=== PATIENT | female | born 1950 | race Caucasian/White ===

== ENCOUNTER 2019-01-20 15:24 | Inpatient (IN) ==
[2019-01-20 15:50] LABS: Hematocrit 36.8 % (35.3-44.9); Hemoglobin 12.6 g/dL (11.5-15.4); Mean Corpuscular HGB Conc 34.2 g/dL (31.6-35.5); Mean Corpuscular Hemoglobin 30.4 pg (28.0-33.3); Mean Corpuscular Volume 88.9 fL (83.0-100.0); Mean Platelet Volume 9.5 fL (9.4-12.4); Platelet Count 149 K/mcL (140-400); Red Blood Count 4.14 M/mcL (3.82-4.97); Red Cell Distribution Width 13.2 % (11.5-14.5); Segmented Neutrophils % 67.4 %
[2019-01-20 15:51] LABS: Basophils % 0.2 %; Eosinophils # 0.1 K/mcL (0.0-0.6); Eosinophils % 1.9 %; Lymphocytes # 1.1 K/mcL (0.6-4.6); Monocytes # 0.4 K/mcL (0.0-1.3); Monocytes % 8.5 %; Neutrophils # 3.5 K/mcL (1.6-8.9)
[2019-01-20 16:10] LABS: Acetaminophen < 10 mcg/mL (10-20); BUN/Creatinine Ratio 19 (6-26); Blood Urea Nitrogen 15 mg/dL (8-23); Calcium 8.8 mg/dL (8.6-10.3); Carbon Dioxide 30 mEq/L (23-29); Chloride 105 mEq/L (98-107); Ethanol < 10 mg/dL (Less than 10); Glucose 121 mg/dL (70-105); Osmolality,Calculated 294 (280-300); Salicylate < 2.5 mg/dL (15.0-30.0); Sodium 141 mEq/L (136-145); eGFR For Non-African Americans > 60 (> 60)
[2019-01-20 16:20] LABS: Bilirubin,Urine Negative (Negative); Blood,Urine Negative (Negative); Clarity,Urine Clear (Clear); Color,Urine Yellow (Yellow); Glucose,Urine (UA) Normal (Normal); Ketones,Urine Negative (Negative); Leukocyte Esterase,Urine Moderate (Negative); Nitrite,Urine Negative (Negative); Protein,Urine Negative (Neg-Trace); Urobilinogen,Urine Normal (Normal)
[2019-01-20 16:22] LABS: Bacteria,Urine None Seen per hpf (None-Few); Hyaline Casts,Urine None Seen per lpf (None-Few); RBC,Urine 0-3 per hpf (0-3); Squamous Epithelial Cell,Urine Many per lpf (None-Few)
[2019-01-20 16:43] LABS: Amphetamine Screen,Urine Negative ng/mL (Cutoff=1000); Barbiturate Screen,Urine Negative ng/mL (Cutoff=200); Benzodiazepines Screen,Urine Negative ng/mL (Cutoff=200); Cannabinoid Screen,Urine Negative ng/mL (Cutoff = 50); Cocaine Screen,Urine Negative ng/mL (Cutoff= 300); Opiate Screen,Urine Negative ng/mL (Cutoff=300); Phencyclidine Screen,Urine Negative ng/mL (Cutoff=25)
[2019-01-20] MEDS ORDERED: Ibuprofen 800 MG TABLET PO ONE (19:07)
--- NOTE | 2019-01-20 19:25 | Emergency Department Note ---
Disposition Clinical Impression: Depression Disposition: Admitted As Inpatient Condition: Good Referrals: NONE,PCP [Primary Care Provider] - Time of Disposition: 19:25 Psych HPI - General Chief Complaint: ED Psychiatric Symptoms Stated Complaint: Depression Time Seen by Provider: 01/20/19 16:07 Source: patient, family - History of Present Illness HPI Narrative: Patient is 69-year-old female presents to emergency department with chief complaint of depression and feeling. The patient states she has had multiple medication changes recently feels as though the world is overwhelming. The patient reports in time she has had intermittent thoughts of hurting does not have a defined plan. The patient was sent to the emergency department today for medical clearance and psychiatric evaluation. - Related Data Home Medications Medication Instructions Recorded Confirmed Albuterol Inhaler 08/02/16 Alprazolam 08/02/16 Atenolol 08/02/16 Gabapentin 08/02/16 Hydrocodone-Acetamin 10-325/15 08/02/16 Meloxicam 08/02/16 Montelukast 08/02/16 Omeprazole 08/02/16 08/02/16 Oxcarbazepine 08/02/16 Requip 08/02/16 Risperdal 08/02/16 Sertraline HCl 08/02/16 Wellbutrin 08/02/16 Previous Rx's Medication Instructions Recorded Loratadine [Claritin] 10 mg PO DAILY #30 tablet 08/02/16 Hyoscyamine SL [Levsin SL] 0.125 mg SL TID PRN #7 tab.subl 10/23/17 Ondansetron ODT [Zofran ODT] 4 mg SL Q8HR PRN #7 tab.rapdis 10/23/17 Sulfamethoxazole/Trimeth DS 1 each PO BID #14 tablet 03/24/18 [Bactrim DS] Nitrofurantoin (BID) [Macrobid] 100 mg PO BID 7 Days #14 capsule 04/19/18 Allergies Allergy/AdvReac Type Severity Reaction Status Date / Time acetaminophen Allergy Rash Verified 08/28/18 12:20 [From Darvocet-N] Buspirone Allergy Rash Verified 08/28/18 12:20 codeine Allergy Itching Verified 08/28/18 12:20 guaifenesin [From Mucinex] Allergy Itching Verified 08/28/18 12:20 propoxyphene [From Darvon] Allergy Rash Verified 08/28/18 12:20 All systems ED: reviewed and negative except as stated. Past Medical History - Past Medical History Attestation: Yes The following information was validated with the patient. Medical history: Reports: arthritis, asthma, fibromyalgia, hypertension, other Surgical history: Reports: non-contributory Psychiatric history: Reports: anxiety, depression - Social History Smoking Status: 2nd Hand Smoke Exposure Smokeless Tobacco Status: No Alcohol use: Reports: none Drug use: Reports: none Physical Exam General: Conversant and pleasant interactive and nontoxic. Head: Normocephalic/atraumatic Eyes:PERRLA, EOMI, no conjunctivitis Nares: Without d/c. Ears: No erythema or d/c noted. Oralpharnyx: P&MMM noted, Neck: Supple, no JVD or ROLLWAY WORKER noted. Cardovascular: regular rate and rhythm without murmur, brisk capillary refill, no peripheral edema. Lungs: Clear to ascultation bilaterally, non-labored Abd: Soft nontender, Non Distended, no guarding, no rebound. : Defered Extremities: moves all extremities equally Neuro: AOx3, no obvious gross neuro deficit Psych: Patient is tearful affect and appears depressed Derm: No rash noted - General Limitations: no limitations General appearance: alert Course Vital Signs Temperature 98.5 F 01/20/19 15:28 Pulse Rate 107 01/20/19 15:28 Respiratory Rate 22 01/20/19 15:28 Blood Pressure 166/83 01/20/19 15:28 O2 Sat by Pulse Oximetry 94 01/20/19 15:28 Temperature 98.5 F 01/20/19 15:28 Pulse Rate 107 01/20/19 15:28 Respiratory Rate 22 01/20/19 15:28 Blood Pressure 166/83 01/20/19 15:28 O2 Sat by Pulse Oximetry 94 01/20/19 15:28 Oxygen Delivery Oxygen Delivery Room Air Psych - Lab Data Result diagrams: 01/20/19 15:42 01/20/19 15:42 Lab Results 01/20/19 01/20/19 01/20/19 Range/Units 15:42 15:42 16:12 WBC 5.2 (4.3-11.1) K/mcL RBC 4.14 (3.82-4.97) M/mcL Hgb 12.6 (11.5-15.4) g/dL Hct 36.8 (35.3-44.9) % MCV 88.9 (83.0-100.0) fL MCH 30.4 (28.0-33.3) pg MCHC 34.2 (31.6-35.5) g/dL RDW 13.2 (11.5-14.5) % Plt Count 149 (140-400) K/mcL MPV 9.5 (9.4-12.4) fL Immature Gran % 1.0 (0-4) % Seg Neutrophils % 67.4 % Lymphocytes % 21.0 % Monocytes % 8.5 % Eosinophils % 1.9 % Basophils % 0.2 % Neutrophils # 3.5 (1.6-8.9) K/mcL Lymphocytes # 1.1 (0.6-4.6) K/mcL Monocytes # 0.4 (0.0-1.3) K/mcL Eosinophils # 0.1 (0.0-0.6) K/mcL Basophils # 0.0 (0.0-0.2) K/mcL Sodium 141 (136-145) mEq/L Potassium 4.0 (3.5-5.1) mEq/L Chloride 105 (98-107) mEq/L Carbon Dioxide 30 H (23-29) mEq/L BUN 15 (8-23) mg/dL Creatinine 0.80 (0.60-1.20) mg/dL Est GFR ( Amer) > 60 (> 60) Est GFR (Non-Af Amer) > 60 (> 60) BUN/Creatinine Ratio 19 (6-26) Glucose 121 H (70-105) mg/dL Calculated Osmolality 294 (280-300) Calcium 8.8 (8.6-10.3) mg/dL Urine Color Yellow (Yellow) Urine Clarity Clear (Clear) Urine pH 6.0 (5.0-8.0) pH Units Ur Specific [place] 1.020 (1.010-1.025) Urine Protein Negative (Neg-Trace) mg/dL Urine Glucose (UA) Normal (Normal) mg/dL Urine Ketones Negative (Negative) mg/dL Urine Blood Negative (Negative) Urine Nitrite Negative (Negative) Urine Bilirubin Negative (Negative) Urine Urobilinogen Normal (Normal) mg/dL Ur Leukocyte Esterase Moderate H (Negative) Urine Microscopic RBC 0-3 (0-3) per hpf Urine Microscopic WBC 5-15 H (0-3) per hpf Ur Squamous Epith Cells Many H (None-Few) per lpf Urine Bacteria None Seen (None-Few) per hpf Hyaline Casts None Seen (None-Few) per lpf Salicylates < 2.5 L (15.0-30.0) mg/dL Urine Opiates Screen (Zlssdf=067) ng/mL Acetaminophen < 10 L (10-20) mcg/mL Ur Barbiturates Screen (Nveixj=900) ng/mL Ur Phencyclidine Scrn (Cutoff=25) ng/mL Ur Amphetamines Screen (Urfoxr=1883) ng/mL U Benzodiazepines Scrn (Warboo=195) ng/mL Urine Cocaine Screen (Cutoff= 300) ng/mL U Marijuana (THC) Screen (Cutoff = 50) ng/mL Ur Drug Screen Interp Ethyl Alcohol < 10 (Less than 10) mg/dL 01/20/19 Range/Units 16:15 WBC (4.3-11.1) K/mcL RBC (3.82-4.97) M/mcL Hgb (11.5-15.4) g/dL Hct (35.3-44.9) % MCV (83.0-100.0) fL MCH (28.0-33.3) pg MCHC (31.6-35.5) g/dL RDW (11.5-14.5) % Plt Count (140-400) K/mcL MPV (9.4-12.4) fL Immature Gran % (0-4) % Seg Neutrophils % % Lymphocytes % % Monocytes % % Eosinophils % % Basophils % % Neutrophils # (1.6-8.9) K/mcL Lymphocytes # (0.6-4.6) K/mcL Monocytes # (0.0-1.3) K/mcL Eosinophils # (0.0-0.6) K/mcL Basophils # (0.0-0.2) K/mcL Sodium (136-145) mEq/L Potassium (3.5-5.1) mEq/L Chloride (98-107) mEq/L Carbon Dioxide (23-29) mEq/L BUN (8-23) mg/dL Creatinine (0.60-1.20) mg/dL Est GFR ( Amer) (> 60) Est GFR (Non-Af Amer) (> 60) BUN/Creatinine Ratio (6-26) Glucose (70-105) mg/dL Calculated Osmolality (280-300) Calcium (8.6-10.3) mg/dL Urine Color (Yellow) Urine Clarity (Clear) Urine pH (5.0-8.0) pH Units Ur Specific [place] (1.010-1.025) Urine Protein (Neg-Trace) mg/dL Urine Glucose (UA) (Normal) mg/dL Urine Ketones (Negative) mg/dL Urine Blood (Negative) Urine Nitrite (Negative) Urine Bilirubin (Negative) Urine Urobilinogen (Normal) mg/dL Ur Leukocyte Esterase (Negative) Urine Microscopic RBC (0-3) per hpf Urine Microscopic WBC (0-3) per hpf Ur Squamous Epith Cells (None-Few) per lpf Urine Bacteria (None-Few) per hpf Hyaline Casts (None-Few) per lpf Salicylates (15.0-30.0) mg/dL Urine Opiates Screen Negative (Cwzsdq=105) ng/mL Acetaminophen (10-20) mcg/mL Ur Barbiturates Screen Negative (Cvzhhg=332) ng/mL Ur Phencyclidine Scrn Negative (Cutoff=25) ng/mL Ur Amphetamines Screen Negative (Gfrcnj=7183) ng/mL U Benzodiazepines Scrn Negative (Ywagry=244) ng/mL Urine Cocaine Screen Negative (Cutoff= 300) ng/mL U Marijuana (THC) Screen Negative (Cutoff = 50) ng/mL Ur Drug Screen Interp See Below Ethyl Alcohol (Less than 10) mg/dL Psychiatric Medical Clearance - Medical Clearance Checklist Does the patient have a NEW psychiatric condition?: No Any abnormalities indicating possible medical illness?: No Any history of medical issues?: No Medical History: No Social History Section defined Any abnormal vital signs prior to transfer?: No Current Vitals: Last Vital Signs Temp 98.5 F 01/20/19 15:28 Pulse 107 01/20/19 15:28 Resp 22 01/20/19 15:28 BP 166/83 01/20/19 15:28 Pulse Ox 94 01/20/19 15:28 Is the patient intoxicated or cognitively impaired?: No Psychiatric Lab Panel: Drug Levels and Toxicity 01/20/19 01/20/19 15:42 16:15 Urine Opiates Screen Negative Acetaminophen < 10 L Ur Barbiturates Screen Negative Ur Phencyclidine Scrn Negative Ur Amphetamines Screen Negative U Benzodiazepines Scrn Negative Urine Cocaine Screen Negative U Marijuana (THC) Screen Negative Ethyl Alcohol < 10 Any abnormalities on the physical exam?: No Any abnormal labs?: No Abnormal Labs: Abnormal lab results Carbon Dioxide 30 mEq/L (23-29) H 01/20/19 15:42 Glucose 121 mg/dL (70-105) H 01/20/19 15:42 Ur Leukocyte Esterase Moderate (Negative) H 01/20/19 16:12 5-15 per hpf (0-3) H 01/20/19 16:12 Ur Squamous Epith Cells Many per lpf (None-Few) H 01/20/19 16:12 Salicylates < 2.5 mg/dL (15.0-30.0) L 01/20/19 15:42 Acetaminophen < 10 mcg/mL (10-20) L 01/20/19 15:42 Does the patient require durable medical equiptment?: No Is the patient ambulatory?: Yes Is the patient a fall risk?: No Has the patient been medically cleared?: Yes Any acute medical condition require Tx prior to transfer?: No Statement of Medical Clearance: I have evaluated the patient, reviewed diagnostic information, and certify that the patient's medical condition is sufficiently stable that transfer to the psychiatric unit does not pose a significant risk of deterioration.
[2019-01-20] MEDS ORDERED: Mag Hydrox/Al Hydrox/Simeth 30 ML UDC PO PRN (19:45)
[2019-01-20] MEDS ORDERED: *HR* LORazepam 2 MG/ML VIAL IM PRN (19:45)
[2019-01-20] MEDS ORDERED: Haloperidol Lactate 5 MG/ML VIAL IM PRN (19:45)
[2019-01-20] MEDS ORDERED: *HR* LORazepam 1 MG TABLET PO PRN ×2 (19:45→23:48)
[2019-01-20] MEDS ORDERED: MOM Conc 10 ML UD.LIQ PO PRN (19:45)
[2019-01-20] MEDS ORDERED: rOPINIRole 1 MG TABLET PO SCH (23:45)
[2019-01-21] MEDS: risperiDONE 1 MG TABLET PO SCH ×2 (00:47→21:15)
[2019-01-21] MEDS: Gabapentin 300 MG CAPSULE PO SCH ×4 (00:47→21:15)
[2019-01-21] MEDS: OXcarbazepine 150 MG TABLET PO SCH ×3 (00:47→21:15)
[2019-01-21] MEDS: traZODone 50 MG TABLET PO PRN ×3 (01:22→23:07)
[2019-01-21] MEDS: Levothyroxine 25 MCG TABLET PO SCH (06:32)
[2019-01-21] MEDS: Metoprolol XL (24 HR) Succ 50 MG TAB.ER.24H PO SCH (09:30)
[2019-01-21] MEDS: rOPINIRole 1 MG TABLET PO SCH ×2 (10:44→21:15)
--- NOTE | 2019-01-21 12:08 | Psychiatry History & Physical ---
Date of Encounter: 01/21/19 Time of Encounter: 12:01 History of Present Illness Patient Stated Chief Complaint: suicidal ideation Medicare Admission Attestation: For traditional Medicare patients the provided hospital inpatient services are reasonable and necessary and in the case of services not specified as inpatient-only under 42 CFR 419.22 (n), that they are appropriately provided as inpatient services in accordance 42 CFR 412.3. For Critical Access Hospital the patient may reasonably be expected to be discharged or transferred to a hospital within 96 hours after admission to the Critical Access Hospital. Admitted From: Home Plans for Post Hospital Care: Home History of Present Illness: Ms. Garcia is a 69 year old female who was admitted secondary to depression with SI. Client has a long history of depression extending back many years. She has been diagnosed with Bipolar Disorder and she has been hospitalized twice before with severe depression. Client has been on multiple different meds over the years and she currently takes Wellbutrin, Neurontin, Ativan, Trileptal, Risperdal, and Zoloft. Client also did ECT at [facility] approximately ten years ago and said this treatment worked well for her. Client is overweight but otherwise physically healthy. No AOD issues. 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 Daughter and granddaughter recently moved in with her because daughter's sent to long term, daughter lost her job and cannot afford her car/home anymore. Daughter is supposed to be helping the client around the house but client states she is also very depressed and just lays around. Client has a history of three suicide attempts with the last one being several years ago. States she does not consider herself a suicide risk at this time because she has been "saved." However, she admits to depression that leaves her unable to function/cope with her life stressors at this point. Past Med Surg Social Fam HX - Past Medical History Medical history: arthritis, asthma, fibromyalgia, hypertension, thyroid disease, other - Past Psychiatric History Psychiatric history: Reports: bipolar, depression, prior suicide attempt, previous psychiatric hospitalization Family psychiatric history: Yes Family Psychiatric History Details: daughter Family History of Suicide: Completed Family Suicide History Details: second or third cousin - Past Surgical History Surgical History: non-contributory - Social History Smoking Status: 2nd Hand Smoke Exposure Smokeless Tobacco Status: No Alcohol use: none Drug use: none Medications & Allergies Albuterol Sulfate [Ventolin Hfa] 2 puff IH Q6H PRN 01/20/19 [History] BuPROPion [Wellbutrin] 100 mg PO BID 01/20/19 [History] Budesonide/Formoterol 80/4.5 [Symbicort 80/4.5] 2 puff IH BID 01/20/19 [History] Ergocalciferol (VITAMIN D2) [Vitamin D2] 50,000 unit PO MO 01/20/19 [History] Gabapentin [Neurontin] 300 mg PO BID 01/20/19 [History] Gabapentin [Neurontin] 600 mg PO HS 01/20/19 [History] Ibuprofen 800 mg PO TID PRN 01/20/19 [History] LORazepam [Ativan] 1 mg PO BID PRN 01/20/19 [History] Levothyroxine Sodium 25 mcg PO DAILY 01/20/19 [History] Metoprolol Succinate [Toprol Xl] 50 mg PO DAILY 01/20/19 [History] OXcarbazepine [Oxcarbazepine] 600 mg PO BID 01/20/19 [History] Omeprazole [PriLOSEC] 20 mg PO DAILY 01/20/19 [History] Sertraline [Zoloft] 200 mg PO DAILY 01/20/19 [History] risperiDONE [Risperidone] 1 mg PO HS 01/20/19 [History] Ropinirole HCl [Requip] 2 mg PO BID 01/21/19 [History] Allergy/AdvReac Type Severity Reaction Status Date / Time acetaminophen Allergy Rash Verified 08/28/18 12:20 [From Darvocet-N] Buspirone Allergy Rash Verified 08/28/18 12:20 codeine Allergy Itching Verified 08/28/18 12:20 guaifenesin [From Mucinex] Allergy Itching Verified 08/28/18 12:20 propoxyphene [From Darvon] Allergy Rash Verified 08/28/18 12:20 Review of Systems Constitutional: Denies: fever, chills, weakness, weight change Eyes: Denies: eye pain, vision change Ears, Nose, Throat: Denies: ear pain, throat pain, dental pain, hearing loss, congestion Cardiovascular: Denies: chest pain, palpitations, dyspnea on exertion Respiratory: Denies: cough, dyspnea, wheezes Gastrointestinal: Denies: abdominal pain, nausea, vomiting, diarrhea, constipation Genitourinary female: Denies: urgency, dysuria, frequency, abnormal menses, dyspareunia Musculoskeletal: Denies: joint swelling, joint pain Integumentary: Denies: rash, lesions, pruritus Neurological: Denies: headache, weakness, numbness, memory loss Endocrine: Denies: fatigue, heat or cold intolerance Hematologic/Lymphatic: Denies: easy bruising, lymphadenopathy Allergic/Immunologic: Denies: urticaria, itchy eyes Exam - HEENT Head exam IM: Present: atraumatic Eye exam IM: Present: EOMI, normal appearance, PERRL ENT exam IM: Present: normal exam - Neurological Neurological exam: Present: CN II-XII intact - Respiratory Respiratory exam IM: Present: CTAB - GI/Abdominal GI/Abdominal exam IM: Present: normal bowel sounds, soft. Absent: tenderness - Extremities Extremities exam IM: Present: full ROM - Skin Skin exam IM: Present: dry, warm - Constitutional Vitals: Temp Pulse Resp BP Pulse Ox 97.5 F L 108 18 125/72 95 01/21/19 09:00 01/21/19 09:00 01/21/19 09:00 01/21/19 09:00 01/21/19 09:00 General appearance: obese - Musculoskeletal Gait: normal Station: relaxed Strength & Tone: normal for patient - Psychiatric Patient Orientation: Yes Person, Yes Time, Yes Place Level of alertness: Alert Behavior: calm, cooperative Psychomotor activity: Normal Eye Contact: Maintains Eye Contact Mood Description: Depressed Affect description: tearful Speech Volume: Normal Speech pattern: normal rate, normal rhythm, normal tone, fluent, spontaneous Language & Vocabulary: consistent with education Thought Process: Linear Thought Content: Yes Suicidal ideation, No Homicidal ideation, No Overt delusions Perceptual Disturbances: No Auditory hallucinations, No Visual hallucinations Attention Span Ability: Capable of Focused Attention Memory Description: Grossly Intact Patient Reliability: Reliable Historian Fund of knowledge: Yes abstraction ability, Yes average, Yes aware of current events Intelligence Estimate: Average Judgment: Fair Insight: Partial Results - Drug Levels and Toxicology Drug Levels and Toxicology: Drug Levels and Toxicity 01/20/19 01/20/19 15:42 16:15 Urine Opiates Screen Negative Acetaminophen < 10 L Ur Barbiturates Screen Negative Ur Phencyclidine Scrn Negative Ur Amphetamines Screen Negative U Benzodiazepines Scrn Negative Urine Cocaine Screen Negative U Marijuana (THC) Screen Negative Ethyl Alcohol < 10 - Labs Labs: Laboratory Last Values WBC 5.2 K/mcL (4.3-11.1) 01/20/19 15:42 RBC 4.14 M/mcL (3.82-4.97) 01/20/19 15:42 Hgb 12.6 g/dL (11.5-15.4) 01/20/19 15:42 Hct 36.8 % (35.3-44.9) 01/20/19 15:42 MCV 88.9 fL (83.0-100.0) 01/20/19 15:42 MCH 30.4 pg (28.0-33.3) 01/20/19 15:42 MCHC 34.2 g/dL (31.6-35.5) 01/20/19 15:42 RDW 13.2 % (11.5-14.5) 01/20/19 15:42 Plt Count 149 K/mcL (140-400) 01/20/19 15:42 MPV 9.5 fL (9.4-12.4) 01/20/19 15:42 Immature Gran % 1.0 % (0-4) 01/20/19 15:42 Seg Neutrophils % 67.4 % 01/20/19 15:42 21.0 % 01/20/19 15:42 8.5 % 01/20/19 15:42 1.9 % 01/20/19 15:42 0.2 % 01/20/19 15:42 3.5 K/mcL (1.6-8.9) 01/20/19 15:42 1.1 K/mcL (0.6-4.6) 01/20/19 15:42 0.4 K/mcL (0.0-1.3) 01/20/19 15:42 0.1 K/mcL (0.0-0.6) 01/20/19 15:42 0.0 K/mcL (0.0-0.2) 01/20/19 15:42 Sodium 141 mEq/L (136-145) 01/20/19 15:42 Potassium 4.0 mEq/L (3.5-5.1) 01/20/19 15:42 Chloride 105 mEq/L (98-107) 01/20/19 15:42 Carbon Dioxide 30 mEq/L (23-29) H 01/20/19 15:42 BUN 15 mg/dL (8-23) 01/20/19 15:42 0.80 mg/dL (0.60-1.20) 01/20/19 15:42 Est GFR ( Amer) > 60 (> 60) 01/20/19 15:42 Est GFR (Non-Af Amer) > 60 (> 60) 01/20/19 15:42 19 (6-26) 01/20/19 15:42 Glucose 121 mg/dL (70-105) H 01/20/19 15:42 294 (280-300) 01/20/19 15:42 Calcium 8.8 mg/dL (8.6-10.3) 01/20/19 15:42 Yellow (Yellow) 01/20/19 16:12 Clear (Clear) 01/20/19 16:12 6.0 pH Units (5.0-8.0) 01/20/19 16:12 Ur Specific [place] 1.020 (1.010-1.025) 01/20/19 16:12 Negative mg/dL (Neg-Trace) 01/20/19 16:12 Normal mg/dL (Normal) 01/20/19 16:12 Negative mg/dL (Negative) 01/20/19 16:12 Negative (Negative) 01/20/19 16:12 Negative (Negative) 01/20/19 16:12 Negative (Negative) 01/20/19 16:12 Normal mg/dL (Normal) 01/20/19 16:12 Ur Leukocyte Esterase Moderate (Negative) H 01/20/19 16:12 0-3 per hpf (0-3) 01/20/19 16:12 5-15 per hpf (0-3) H 01/20/19 16:12 Ur Squamous Epith Cells Many per lpf (None-Few) H 01/20/19 16:12 None Seen per hpf (None-Few) 01/20/19 16:12 Hyaline Casts None Seen per lpf (None-Few) 01/20/19 16:12 Salicylates < 2.5 mg/dL (15.0-30.0) L 01/20/19 15:42 Negative ng/mL (Xzkaxu=620) 01/20/19 16:15 Acetaminophen < 10 mcg/mL (10-20) L 01/20/19 15:42 Ur Barbiturates Screen Negative ng/mL (Odctuu=708) 01/20/19 16:15 Ur Phencyclidine Scrn Negative ng/mL (Cutoff=25) 01/20/19 16:15 Ur Amphetamines Screen Negative ng/mL (Awdjif=7618) 01/20/19 16:15 U Benzodiazepines Scrn Negative ng/mL (Glguyp=533) 01/20/19 16:15 Negative ng/mL (Cutoff= 300) 01/20/19 16:15 U Marijuana (THC) Screen Negative ng/mL (Cutoff = 50) 01/20/19 16:15 Ur Drug Screen Interp See Below 01/20/19 16:15 Ethyl Alcohol < 10 mg/dL (Less than 10) 01/20/19 15:42 Assessment and Plan (1) Bipolar 1 disorder, depressed Current visit: Yes Status: Acute Plan: Admit inpatient for safety and stabilization, Close observation, Suicide Precautions per unit protocol, Encourage participation in unit milieu, Group Therapy, Monitor sleep, Monitor appetite Additional Plan: Will look into ECT referral. Risks, benefits, side effects, alternatives discussed w/pt: Yes Patient agreeable to treatment: Yes Plans for Post Hospital Care: Home Estimated Length of Stay (Days): 4
[2019-01-21] MEDS: Ibuprofen 400 MG TABLET PO PRN (12:39)
[2019-01-21] MEDS: Budesonide/Formoterol 80/4.5 MDI IH SCH ×2 (14:00→23:11)
[2019-01-21] MEDS: hydrOXYzine pamoate 25 MG CAPSULE PO PRN (21:15)
[2019-01-22] MEDS: Levothyroxine 25 MCG TABLET PO SCH (06:47)
[2019-01-22] MEDS: rOPINIRole 1 MG TABLET PO SCH ×2 (09:24→21:40)
[2019-01-22] MEDS: OXcarbazepine 150 MG TABLET PO SCH ×2 (09:25→21:41)
[2019-01-22] MEDS: Gabapentin 300 MG CAPSULE PO SCH ×3 (09:25→21:40)
[2019-01-22] MEDS: Metoprolol XL (24 HR) Succ 50 MG TAB.ER.24H PO SCH (09:26)
--- NOTE | 2019-01-22 10:34 | Psychiatry Progress Note ---
Date of Encounter: 01/22/19 Time of Encounter: 10:30 Subjective Interval history: Doing a little better. Still very depressed but states she thinks her mood has shown some improvement. Continues to be anxious and tearful at times but she is interacting well and attending groups. Took Trazodone and Vistaril last night and indicated medication combination helped her to relax and get some sleep which was beneficial. Appetite is fair. Denies SI, intent, or plan but still struggles with hopelessness and the fear that things will not get better. Encouraged that she may be able to do ECT again. Based on her past positive response and no obvious disqualifying medical conditions, this ad copy writer sees no reason she should not be a candidate for doing it again. Will likely need to do this as an outpatient but staff are attempting to set her up with the necessary appointments to start the process. Review of Systems Constitutional: Denies: fever, chills, weakness, weight change Eyes: Denies: eye pain, vision change Ears, Nose, Throat: Denies: ear pain, throat pain, dental pain, hearing loss, congestion Cardiovascular: Denies: chest pain, palpitations, dyspnea on exertion Respiratory: Denies: cough, dyspnea, wheezes Gastrointestinal: Denies: abdominal pain, nausea, vomiting, diarrhea, constipation Musculoskeletal: Denies: joint swelling, joint pain Neurological: Denies: headache, weakness, numbness, memory loss Results - Vital Signs Vital Signs: Temp Pulse Resp BP Pulse Ox 98.5 F 92 16 166/81 96 01/22/19 09:00 01/22/19 09:00 01/22/19 09:00 01/22/19 09:00 01/22/19 09:00 Assessment and Plan (1) Bipolar 1 disorder, depressed Current visit: Yes Status: Acute Plan: Continue hospitalization, Close observation, Suicide Precautions per unit protocol, Encourage participation in unit milieu, Group Therapy, Monitor sleep, Monitor appetite Risks, benefits, side effects, alternatives discussed w/pt: Yes Patient agreeable to treatment: Yes Consult Discharge Plan - Plan Referrals: [facility] [Outside] - 02/21/19 10:00 am (You have an appointment scheduled for Friday, February 22, 2019 at 1:30 PM with Rony West APRN, PMHNP- for medication management. You have an appointment scheduled with Dr. Dylon Jimenez, PhD on Thursday, February 21, 2019 at 10:00 AM for Counseling. Please contact the office at least 24 hours in advance if you are unable to keep your appointment(s). ) Psychiatry Exam - Constitutional Vitals: Temp Pulse Resp BP Pulse Ox 98.5 F 92 16 166/81 96 01/22/19 09:00 01/22/19 09:00 01/22/19 09:00 01/22/19 09:00 01/22/19 09:00 General appearance: obese - Musculoskeletal Gait: normal Station: relaxed Strength & Tone: normal for patient - Psychiatric Patient Orientation: Yes Person, Yes Time, Yes Place Level of alertness: Alert Behavior: calm, cooperative Psychomotor activity: Normal Eye Contact: Maintains Eye Contact Mood Description: Depressed, Anxious Affect description: congruent with mood Speech Volume: Normal Speech pattern: normal rate, normal rhythm, normal tone, fluent, spontaneous Language & Vocabulary: consistent with education Thought Process: Linear Thought Content: No Suicidal ideation, No Homicidal ideation, No Overt delusions Perceptual Disturbances: No Auditory hallucinations, No Visual hallucinations Attention Span Ability: Capable of Focused Attention Memory Description: Grossly Intact Patient Reliability: Reliable Historian Fund of knowledge: Yes abstraction ability, Yes aware of current events Intelligence Estimate: Average Judgment: Fair Insight: Partial
[2019-01-22] MEDS: Budesonide/Formoterol 80/4.5 MDI IH SCH ×2 (11:01→22:28)
[2019-01-22] MEDS: risperiDONE 1 MG TABLET PO SCH (21:41)
[2019-01-22] MEDS: traZODone 50 MG TABLET PO PRN (23:35)
[2019-01-22] MEDS: hydrOXYzine pamoate 25 MG CAPSULE PO PRN (23:35)
--- NOTE | 2019-01-23 09:00 | Psychiatry Progress Note ---
Date of Encounter: 01/23/19 Time of Encounter: 08:57 Subjective Interval history: Client is looking better. States she is not ready to go home yet and quickly becomes tearful at the idea of returning home. However, when discussing other things she has a lot more affect. Smiling more. Engaging appropriately with her peers and staff. Eating well. Did not sleep last night but states the anxiety she experiences at nighttime was improved. Slept well the night before. ECT referral has been made. Should know more tomorrow as to whether client should be transferred for inpatient ECT or whether she can be discharged to follow up as an outpatient. Client is denying SI today but she continues to be rather despondent about her family life and the future. Review of Systems Constitutional: Denies: fever, chills, weakness, weight change Eyes: Denies: eye pain, vision change Ears, Nose, Throat: Denies: ear pain, throat pain, dental pain, hearing loss, congestion Cardiovascular: Denies: chest pain, palpitations, dyspnea on exertion Respiratory: Denies: cough, dyspnea, wheezes Gastrointestinal: Denies: abdominal pain, nausea, vomiting, diarrhea, constipation Musculoskeletal: Denies: joint swelling, joint pain Neurological: Denies: headache, weakness, numbness, memory loss Results - Vital Signs Vital Signs: Temp Pulse Resp BP Pulse Ox 99.0 F 81 18 136/71 96 01/22/19 20:40 01/22/19 20:40 01/22/19 20:40 01/22/19 20:40 01/22/19 20:40 Assessment and Plan (1) Bipolar 1 disorder, depressed Current visit: Yes Status: Acute Plan: Continue hospitalization, Close observation, Suicide Precautions per unit protocol, Encourage participation in unit milieu, Group Therapy, Monitor sleep, Monitor appetite Risks, benefits, side effects, alternatives discussed w/pt: Yes Patient agreeable to treatment: Yes Consult Discharge Plan - Plan Referrals: [facility] [Outside] - 02/21/19 10:00 am (You have an appointment scheduled for Friday, February 22, 2019 at 1:30 PM with Rony West APRN, PMHNP- for medication management. You have an appointment scheduled with Dr. Dylon Jimenez, PhD on Thursday, February 21, 2019 at 10:00 AM for Counseling. Please contact the office at least 24 hours in advance if you are unable to keep your appointment(s). ) Psychiatry Exam - Constitutional Vitals: Temp Pulse Resp BP Pulse Ox 99.0 F 81 18 136/71 96 01/22/19 20:40 01/22/19 20:40 01/22/19 20:40 01/22/19 20:40 01/22/19 20:40 General appearance: obese - Musculoskeletal Gait: normal Station: relaxed Strength & Tone: normal for patient - Psychiatric Patient Orientation: Yes Person, Yes Time, Yes Place Level of alertness: Alert Behavior: calm, cooperative Psychomotor activity: Normal Eye Contact: Maintains Eye Contact Mood Description: Depressed Affect description: full range Speech Volume: Normal Speech pattern: normal rate, normal rhythm, normal tone, fluent, spontaneous Thought Process: Linear Thought Content: No Suicidal ideation, No Homicidal ideation, No Overt delusions Perceptual Disturbances: No Auditory hallucinations, No Visual hallucinations Attention Span Ability: Capable of Focused Attention Memory Description: Grossly Intact Patient Reliability: Reliable Historian Fund of knowledge: Yes abstraction ability, Yes aware of current events Intelligence Estimate: Average Judgment: Fair Insight: Partial
[2019-01-23] MEDS: Metoprolol XL (24 HR) Succ 50 MG TAB.ER.24H PO SCH (10:17)
[2019-01-23] MEDS: Levothyroxine 25 MCG TABLET PO SCH (10:17)
[2019-01-23] MEDS: Gabapentin 300 MG CAPSULE PO SCH ×3 (10:17→20:18)
[2019-01-23] MEDS: OXcarbazepine 150 MG TABLET PO SCH ×2 (10:17→20:18)
[2019-01-23] MEDS: rOPINIRole 1 MG TABLET PO SCH ×2 (10:18→20:19)
[2019-01-23] MEDS: Budesonide/Formoterol 80/4.5 MDI IH SCH ×2 (10:26→20:21)
[2019-01-23] MEDS: traZODone 50 MG TABLET PO PRN (20:18)
[2019-01-23] MEDS: hydrOXYzine pamoate 25 MG CAPSULE PO PRN (20:18)
[2019-01-23] MEDS: risperiDONE 1 MG TABLET PO SCH (20:19)
[2019-01-24] MEDS: Levothyroxine 25 MCG TABLET PO SCH (06:03)
[2019-01-24] MEDS: rOPINIRole 1 MG TABLET PO SCH ×2 (09:15→21:03)
[2019-01-24] MEDS: Metoprolol XL (24 HR) Succ 50 MG TAB.ER.24H PO SCH (09:15)
[2019-01-24] MEDS: OXcarbazepine 150 MG TABLET PO SCH ×2 (09:17→21:03)
[2019-01-24] MEDS: Gabapentin 300 MG CAPSULE PO SCH ×3 (09:17→21:04)
[2019-01-24] MEDS: Budesonide/Formoterol 80/4.5 MDI IH SCH ×2 (09:23→21:07)
--- NOTE | 2019-01-24 09:54 | Psychiatry Progress Note ---
Date of Encounter: 01/24/19 Time of Encounter: 09:52 Subjective Interval history: Patient said she had a very bad spell last evening. She said she was crying excessively and nursing staff overheard her and had to come in and try to calm her down. She reports poor sleep and staff said she was noted to only be resting about 4-1/2 hours even after when necessary. She did not believe she had even slept that many hours. She denies hallucinations but reports some hopelessness. She said that she is hopeful that ECT will help again. She did discuss issues with her daughter and feeling that her daughter may have bipolar disorder. She said her daughter lives with her and she has been spending excessively. This is a source of conflict. Another source of stress is that her is unable to walk due to having to toes surgically removed related to an embolism. Review of Systems Psychiatric: Reports: depression, suicidal ideation, anhedonia, hopelessness Results - Vital Signs Vital Signs: Temp Pulse Resp BP Pulse Ox 98.4 F 87 18 158/92 94 01/24/19 09:00 01/24/19 09:00 01/24/19 09:00 01/24/19 09:00 01/24/19 09:00 Assessment and Plan (1) Bipolar 1 disorder, depressed Current visit: Yes Status: Acute Plan: Continue hospitalization, Close observation, Suicide Precautions per unit protocol, Encourage participation in unit milieu, Group Therapy, Monitor sleep, Monitor appetite Additional Plan: Increase Wellbutrin to XL 300 mg by mouth every morning, start Remeron 7.5 mg at bedtime for sleep and depression. Encourage groups. Risks, benefits, side effects, alternatives discussed w/pt: Yes Patient agreeable to treatment: Yes Consult Discharge Plan - Plan Referrals: [facility] [Outside] - 02/21/19 10:00 am (You have an appointment scheduled for Friday, February 22, 2019 at 1:30 PM with Rony West APRN, PMHNP- for medication management. You have an appointment scheduled with Dr. Dylon Jimenez, PhD on Thursday, February 21, 2019 at 10:00 AM for Counseling. Please contact the office at least 24 hours in advance if you are unable to keep your appointment(s). ) Psychiatry Exam - Constitutional Vitals: Temp Pulse Resp BP Pulse Ox 98.4 F 87 18 158/92 94 05/13/19 09:00 01/24/19 09:00 01/24/19 09:00 01/24/19 09:00 01/24/19 09:00 General appearance: age & developmentally appropriate, disheveled - Musculoskeletal Gait: slow Station: stooped Strength & Tone: normal for patient - Psychiatric Patient Orientation: Yes Person, Yes Time, Yes Place Level of alertness: Alert Behavior: tearful Psychomotor activity: Increased (foot tapping) Eye Contact: Minimal Contact Mood Description: Depressed Patient description of mood: down Affect description: dysphoric Speech Volume: Soft/Quiet Speech pattern: slowed Language & Vocabulary: consistent with education Thought Process: Linear, Goal Oriented Thought Content: Yes Suicidal ideation, No Homicidal ideation Perceptual Disturbances: No Reacting to internal stimuli, No Auditory hallucinations, No Visual hallucinations Attention Span Ability: Unable to Focus, Unable to Sustain Attention Memory Description: Grossly Intact Patient Reliability: Reliable Historian Fund of knowledge: Yes abstraction ability, Yes aware of current events Intelligence Estimate: Average Judgment: Limited Insight: Minimal
[2019-01-24] MEDS: hydrOXYzine pamoate 25 MG CAPSULE PO PRN (21:03)
[2019-01-24] MEDS: Mirtazapine 15 MG TABLET PO SCH (21:04)
[2019-01-24] MEDS: risperiDONE 1 MG TABLET PO SCH (21:04)
[2019-01-24] MEDS: Cholecalciferol (D-3) 1,000 UNIT TABLET PO SCH (21:06)
[2019-01-24] MEDS: traZODone 50 MG TABLET PO PRN (23:13)
[2019-01-24] MEDS ORDERED: Cholecalciferol (D-3) 1,000 UNIT TABLET PO SCH (23:48)
[2019-01-25] MEDS: Levothyroxine 25 MCG TABLET PO SCH (06:19)
--- NOTE | 2019-01-25 08:48 | Psychiatry Progress Note ---
Date of Encounter: 01/25/19 Time of Encounter: 08:46 Subjective Interval history: Patient reports she slept better with the Remeron. She said she had some difficulty waking up but once she was awake she has felt fine. She reports that she is disappointed that she cannot go directly to [place] for ECT but she understands this information. According to staff she has been out and interacting on the unit. She has not had any suicidal thoughts, ideations, or plans. No psychosis. Continues to report anxiety and depression. Review of Systems Psychiatric: Reports: depression, anhedonia, hopelessness Results - Vital Signs Vital Signs: Temp Pulse Resp BP Pulse Ox 98.0 F 74 16 128/70 94 01/24/19 21:00 01/24/19 21:00 01/24/19 21:00 01/24/19 21:00 01/24/19 21:00 Assessment and Plan (1) Bipolar 1 disorder, depressed Current visit: Yes Status: Acute Plan: Continue hospitalization, Close observation, Suicide Precautions per unit protocol, Encourage participation in unit milieu, Group Therapy, Monitor sleep, Monitor appetite, Family/Supportive other meeting Additional Plan: Continue current medications. Encourage continued group attendance. Therapists working on a family meeting. Risks, benefits, side effects, alternatives discussed w/pt: Yes Patient agreeable to treatment: Yes Consult Discharge Plan - Plan Referrals: [facility] [Outside] - 02/21/19 10:00 am (You have an appointment scheduled for Friday, February 22, 2019 at 1:30 PM with Rony West APRN, PMHNP- for medication management. You have an appointment scheduled with Dr. Dylon Jimenez, PhD on Thursday, February 21, 2019 at 10:00 AM for Counseling. Please contact the office at least 24 hours in advance if you are unable to keep your appointment(s). ) Psychiatry Exam - Constitutional Vitals: Temp Pulse Resp BP Pulse Ox 98.0 F 74 16 128/70 94 01/24/19 21:00 01/24/19 21:00 01/24/19 21:00 01/24/19 21:01/24/19 21:00 General appearance: age & developmentally appropriate, disheveled - Musculoskeletal Gait: slow Station: stooped Strength & Tone: normal for patient - Psychiatric Patient Orientation: Yes Person, Yes Time, Yes Place Level of alertness: Alert Behavior: anxious Psychomotor activity: Increased Eye Contact: Maintains Eye Contact Mood Description: Depressed, Anxious Patient description of mood: anxious Affect description: congruent with mood Speech Volume: Normal Speech pattern: normal rate, normal rhythm, normal tone, fluent, spontaneous Language & Vocabulary: consistent with education Thought Process: Linear, Goal Oriented Thought Content: No Suicidal ideation, No Homicidal ideation, No Overt delusions Perceptual Disturbances: No Auditory hallucinations, No Visual hallucinations Attention Span Ability: Capable of Focused Attention Memory Description: Grossly Intact Patient Reliability: Reliable Historian Fund of knowledge: Yes abstraction ability, Yes aware of current events Intelligence Estimate: Average Judgment: Limited Insight: Partial
[2019-01-25] MEDS: BuPROPion XL (24 HR) 150 MG TABLET PO SCH (09:40)
[2019-01-25] MEDS: Gabapentin 300 MG CAPSULE PO SCH ×3 (09:40→21:04)
[2019-01-25] MEDS: OXcarbazepine 150 MG TABLET PO SCH ×2 (09:41→21:01)
[2019-01-25] MEDS: rOPINIRole 1 MG TABLET PO SCH ×2 (09:41→21:01)
[2019-01-25] MEDS: Metoprolol XL (24 HR) Succ 50 MG TAB.ER.24H PO SCH (09:41)
[2019-01-25] MEDS: Budesonide/Formoterol 80/4.5 MDI IH SCH ×2 (09:48→21:08)
[2019-01-25] MEDS: Ibuprofen 400 MG TABLET PO PRN (14:27)
[2019-01-25] MEDS: Mirtazapine 15 MG TABLET PO SCH (20:59)
[2019-01-25] MEDS: hydrOXYzine pamoate 25 MG CAPSULE PO PRN (21:00)
[2019-01-25] MEDS: risperiDONE 1 MG TABLET PO SCH (21:01)
[2019-01-25] MEDS: Cholecalciferol (D-3) 1,000 UNIT TABLET PO SCH (21:36)
[2019-01-25] MEDS: traZODone 50 MG TABLET PO PRN (22:15)
[2019-01-26] MEDS: Levothyroxine 25 MCG TABLET PO SCH (06:33)
[2019-01-26] MEDS: Gabapentin 300 MG CAPSULE PO SCH ×3 (08:52→21:42)
[2019-01-26] MEDS: OXcarbazepine 150 MG TABLET PO SCH ×2 (08:52→21:44)
[2019-01-26] MEDS: rOPINIRole 1 MG TABLET PO SCH ×2 (08:52→21:41)
[2019-01-26] MEDS: Metoprolol XL (24 HR) Succ 50 MG TAB.ER.24H PO SCH (08:53)
[2019-01-26] MEDS: BuPROPion XL (24 HR) 150 MG TABLET PO SCH (08:53)
[2019-01-26] MEDS: Budesonide/Formoterol 80/4.5 MDI IH SCH ×2 (09:11→21:40)
--- NOTE | 2019-01-26 10:05 | Psychiatry Progress Note ---
Date of Encounter: 01/26/19 Time of Encounter: 10:03 Subjective Interval history: Patient is still feeling down at times with some sadness and hopelessness but no suicidal thoughts, ideations, or plans. She is future oriented. She says she would not kill herself because she would not do that to her children and grandchildren. She feels like she will be ready to go home tomorrow. She is still interested in doing ECT as an outpatient. She is tolerating the medications that her sleep is much better. Review of Systems Psychiatric: Reports: depression, anhedonia, hopelessness Results - Vital Signs Vital Signs: Temp Pulse Resp BP Pulse Ox 97.6 F 85 20 173/90 93 01/26/19 09:00 01/26/19 09:00 01/26/19 09:00 01/26/19 09:00 01/26/19 09:00 Assessment and Plan (1) Bipolar 1 disorder, depressed Current visit: Yes Status: Acute Plan: Continue hospitalization, Close observation, Suicide Precautions per unit protocol, Encourage participation in unit milieu, Group Therapy, Monitor sleep, Monitor appetite Additional Plan: Into new medications. Encourage group attendance. Therapist to do calls to her family. Will likely DC tomorrow. Risks, benefits, side effects, alternatives discussed w/pt: Yes Patient agreeable to treatment: Yes Consult Discharge Plan - Plan Referrals: [facility] [Outside] - 02/21/19 10:00 am (You have an appointment scheduled for Friday, February 22, 2019 at 1:30 PM with Rony West APRN, PMHNP- for medication management. You have an appointment scheduled with Dr. Dylon Jimenez, PhD on Thursday, February 21, 2019 at 10:00 AM for Counseling. Please contact the office at least 24 hours in advance if you are unable to keep your appointment(s). ) Psychiatry Exam - Constitutional Vitals: Temp Pulse Resp BP Pulse Ox 97.6 F 85 20 173/90 93 01/26/19 09:00 01/26/19 09:00 01/26/19 09:00 01/26/19 09:00 01/26/19 09:00 General appearance: age & developmentally appropriate, well-groomed, well- nourished - Musculoskeletal Gait: normal Station: relaxed Strength & Tone: normal for patient - Psychiatric Patient Orientation: Yes Person, Yes Time, Yes Place, Yes Circumstance Level of alertness: Alert Behavior: cooperative, nervous Psychomotor activity: Normal Eye Contact: Maintains Eye Contact Mood Description: Depressed Patient description of mood: a little better Affect description: congruent with mood, dysphoric (less ) Speech Volume: Normal Speech pattern: normal rate, normal rhythm, normal tone, fluent, spontaneous Language & Vocabulary: consistent with education Thought Process: Linear, Goal Oriented Thought Content: No Suicidal ideation, No Homicidal ideation, No Overt delusions Perceptual Disturbances: No Auditory hallucinations, No Visual hallucinations Attention Span Ability: Capable of Focused Attention Memory Description: Grossly Intact Patient Reliability: Reliable Historian Fund of knowledge: Yes abstraction ability, Yes aware of current events Intelligence Estimate: Average Judgment: Good Insight: Full
[2019-01-26 13:53] LABS: Basophils % 0.4 %; Eosinophils # 0.1 K/mcL (0.0-0.6); Eosinophils % 2.2 %; Hematocrit 36.3 % (35.3-44.9); Hemoglobin 12.4 g/dL (11.5-15.4); Lymphocytes # 1.1 K/mcL (0.6-4.6); Lymphocytes % 21.3 %; Mean Corpuscular HGB Conc 34.2 g/dL (31.6-35.5); Mean Corpuscular Hemoglobin 30.5 pg (28.0-33.3); Mean Corpuscular Volume 89.4 fL (83.0-100.0); Mean Platelet Volume 9.8 fL (9.4-12.4); Monocytes # 0.4 K/mcL (0.0-1.3); Monocytes % 8.7 %; Neutrophils # 3.4 K/mcL (1.6-8.9); Platelet Count 137 K/mcL (140-400); Red Blood Count 4.06 M/mcL (3.82-4.97); Segmented Neutrophils % 66.4 %
[2019-01-26] MEDS: Ibuprofen 400 MG TABLET PO PRN (14:50)
[2019-01-26 15:11] LABS: Alanine Aminotransferase 11 Units/L (7-52); Albumin 3.9 g/dL (3.5-5.7); Albumin/Globulin Ratio 1.5 (1.1-2.2); Alkaline Phosphatase 77 Units/L (34-104); Aspartate Amino Transferase 16 Units/L (13-39); Bilirubin,Total 0.3 mg/dL (0.3-1.0); Calcium 8.7 mg/dL (8.6-10.3); Carbon Dioxide 31 mEq/L (23-29); Chloride 106 mEq/L (98-107); Globulin 2.6 g/dL (2.4-3.5); Glucose 104 mg/dL (70-105); Potassium 4.1 mEq/L (3.5-5.1); Sodium 141 mEq/L (136-145); Total Protein 6.5 g/dL (6.4-8.9); eGFR For Non-African Americans 58 (> 60)
[2019-01-26 15:27] LABS: BUN/Creatinine Ratio 20 (6-26); Blood Urea Nitrogen 19 mg/dL (8-23); Osmolality,Calculated 295 (280-300)
[2019-01-26 15:59] LABS: Thyroid Stimulating Hormone 1.997 mcIU/mL (0.340-5.600)
[2019-01-26] MEDS: hydrOXYzine pamoate 25 MG CAPSULE PO PRN (21:42)
[2019-01-26] MEDS: traZODone 50 MG TABLET PO PRN (21:43)
[2019-01-26] MEDS: risperiDONE 1 MG TABLET PO SCH (21:43)
[2019-01-26] MEDS: Mirtazapine 15 MG TABLET PO SCH (21:44)
[2019-01-27] MEDS: Cholecalciferol (D-3) 1,000 UNIT TABLET PO SCH (04:12)
--- NOTE | 2019-01-27 06:35 | Discharge Summary ---
Date of Encounter: 01/27/19 Time of Encounter: 06:29 Diagnosis - Discharge Diagnosis (1) Bipolar 1 disorder, depressed Status: Acute Medications - Discharge Medications Prescriptions: LORazepam [Ativan] 1 mg PO BID PRN 15 Days #30 tablet PRN Reason: Anxiety hydrOXYzine pamoate [HydrOXYzine Pamoate] 25 mg PO TID PRN #15 capsule PRN Reason: Anxiety OXcarbazepine [Oxcarbazepine] 600 mg PO BID #30 tablet Mirtazapine [Remeron] 7.5 mg PO HS #15 tablet risperiDONE [Risperidone] 1 mg PO HS #15 tablet traZODone [TraZODone] 50 mg PO HS PRN #15 tablet PRN Reason: Insomnia BuPROPion XL (24 HR) [Wellbutrin Xl] 300 mg PO DAILY #30 tab.er.24h Sertraline [Zoloft] 200 mg PO DAILY #30 tablet Albuterol Sulfate [Ventolin Hfa] 2 puff IH Q6H PRN 01/20/19 [History] Budesonide/Formoterol 80/4.5 [Symbicort 80/4.5] 2 puff IH BID 01/20/19 [History] Ergocalciferol (VITAMIN D2) [Vitamin D2] 50,000 unit PO MO 01/20/19 [History] Gabapentin [Neurontin] 300 mg PO BID 01/20/19 [History] Gabapentin [Neurontin] 600 mg PO HS 01/20/19 [History] Ibuprofen 800 mg PO TID PRN 01/20/19 [History] Levothyroxine Sodium 25 mcg PO DAILY 01/20/19 [History] Metoprolol Succinate [Toprol Xl] 50 mg PO DAILY 01/20/19 [History] Omeprazole [PriLOSEC] 20 mg PO DAILY 01/20/19 [History] Ropinirole HCl [Requip] 2 mg PO BID 01/21/19 [History] BuPROPion XL (24 HR) [Wellbutrin Xl] 300 mg PO DAILY #30 tab.er.24h 01/27/19 [Rx] LORazepam [Ativan] 1 mg PO BID PRN 15 Days #30 tablet 01/27/19 [Rx] Mirtazapine [Remeron] 7.5 mg PO HS #15 tablet 01/27/19 [Rx] OXcarbazepine [Oxcarbazepine] 600 mg PO BID #30 tablet 01/27/19 [Rx] Sertraline [Zoloft] 200 mg PO DAILY #30 tablet 01/27/19 [Rx] hydrOXYzine pamoate [HydrOXYzine Pamoate] 25 mg PO TID PRN #15 capsule 01/27/19 [Rx] risperiDONE [Risperidone] 1 mg PO HS #15 tablet 01/27/19 [Rx] traZODone [TraZODone] 50 mg PO HS PRN #15 tablet 01/27/19 [Rx] Allergy/AdvReac Type Severity Reaction Status Date / Time acetaminophen Allergy Rash Verified 08/28/18 12:20 [From Darvocet-N] Buspirone Allergy Rash Verified 08/28/18 12:20 codeine Allergy Itching Verified 08/28/18 12:20 guaifenesin [From Mucinex] Allergy Itching Verified 08/28/18 12:20 propoxyphene [From Darvon] Allergy Rash Verified 08/28/18 12:20 Results Procedures and tests throughout hospitalization: Completed Lab Orders Category Date Time Status Acetaminophen Stat Lab 01/20/19 15:42 Completed Basic Metabolic Panel Stat Lab 01/20/19 15:42 Completed Complete Blood Count [HEME] Routine Lab 01/26/19 13:35 Completed Complete Blood Count [HEME] Stat Lab 01/20/19 15:42 Completed Comprehensive Metabolic Panel Routine Lab 01/26/19 13:35 Completed Drug Screen, Urine [UCHEM] Stat Lab 01/20/19 16:15 Completed Ethanol Stat Lab 01/20/19 15:42 Completed Salicylate Stat Lab 01/20/19 15:42 Completed Thyroid Stimulating Hormone Routine Lab 01/26/19 13:35 Completed Urinalysis reflex Microscopic [URIN] Stat Lab 01/20/19 16:12 Completed Vital Signs Temp Pulse Resp BP Pulse Ox 01/26/19 21:00 98.5 F 88 20 173/83 97 01/26/19 09:00 97.6 F 85 20 173/90 93 Intake and Output 01/26/19 01/26/19 01/27/19 15:59 23:59 07:59 Other: Meal Lunch Dinner Percent of Meal Consumed 50% 100% Laboratory Results - last 72 hr 01/26/19 01/26/19 13:35 13:35 WBC 5.1 RBC 4.06 Hgb 12.4 Hct 36.3 MCV 89.4 MCH 30.5 MCHC 34.2 RDW 13.0 Plt Count 137 L MPV 9.8 Immature Gran % 1.0 Seg Neutrophils % 66.4 Lymphocytes % 21.3 Monocytes % 8.7 Eosinophils % 2.2 Basophils % 0.4 Neutrophils # 3.4 Lymphocytes # 1.1 Monocytes # 0.4 Eosinophils # 0.1 Basophils # 0.0 Sodium 141 Potassium 4.1 Chloride 106 Carbon Dioxide 31 H BUN 19 Creatinine 0.96 Est GFR ( Amer) > 60 Est GFR (Non-Af Amer) 58 L BUN/Creatinine Ratio 20 Glucose 104 Calculated Osmolality 295 Calcium 8.7 Total Bilirubin 0.3 AST 16 ALT 11 Alkaline Phosphatase 77 Serum Total Protein 6.5 Albumin 3.9 Globulin 2.6 Albumin/Globulin Ratio 1.5 TSH 1.997 Provider Date of admission: 01/20/19 19:29 Primary care physician: PCP NONE Discharging clinician: Coni Mathias Psychiatry Exam - Constitutional Vitals: Temp Pulse Resp BP Pulse Ox 98.5 F 88 20 173/83 97 01/26/19 21:00 01/26/19 21:00 01/26/19 21:00 01/26/19 21:00 01/26/19 21:00 General appearance: age & developmentally appropriate, well-groomed, well- nourished - Musculoskeletal Gait: normal Station: relaxed Strength & Tone: normal for patient - Psychiatric Patient Orientation: Yes Person, Yes Time, Yes Place Level of alertness: Alert Behavior: calm, cooperative Psychomotor activity: Normal Eye Contact: Maintains Eye Contact Mood Description: Depressed (Slightly) Patient description of mood: Better Affect description: congruent with mood, full range, dysphoric (Slightly) Speech Volume: Normal Speech pattern: normal rate, normal rhythm, normal tone, fluent, spontaneous Language & Vocabulary: consistent with education Thought Process: Linear, Goal Oriented Thought Content: No Suicidal ideation, No Homicidal ideation, No Overt delusions Perceptual Disturbances: No Auditory hallucinations, No Visual hallucinations Attention Span Ability: Capable of Focused Attention Memory Description: Grossly Intact Patient Reliability: Reliable Historian Fund of knowledge: Yes abstraction ability, Yes aware of current events Intelligence Estimate: Average Judgment: Good Insight: Full Hospital Course Hospital course: Ms. Garcia is a 69 year old female who was admitted for depression with suicidal thoughts. Remeron was added to her medications for further help with her depression and insomnia. Wellbutrin was titrated up. She was continued on her Zoloft and when necessary Ativan. She will see his when necessary Vistaril for anxiety and trazodone for insomnia. Her suicidal thoughts resolved. She was interested in getting electroconvulsive therapy again when she had done in the with great success. We contacted [facility] who did not have a bed for direct transfer but were willing to see her for the possibility of outpatient ECT. We continue to keep her and monitor her her suicidal thoughts continued to not be present. She still had some residual sadness but she was hopeful and future oriented.Patient was educated of diagnosis and the risk-benefit side effects of her treatment and alternative treatment options and was monitored for responsiveness and side effects. Mood anxiety sleep and appetite interest improved as did future orientation. Self- harm thoughts subsided, thinking was clear, psychosis was not present,. Patient was able to attend both individual and group therapy sessions as well as meet with the psychiatrist daily and urged to discuss any medication or treatment issues or other concerns. The patient was educated primarily by verbal means about their diagnosis and manifestations in their life. The option for treatment including group and individual therapy programming was offered to the patient in addition to the use of medications with all their potential risks, benefits, and side effects as well as the risks of not taking medication and non-adhereance were discussed with the patient at length. The patient was given the opportunity to ask questions and was noted to participate in the treatment in the planning process. The patient felt ready and eager to be discharged from the inpatient psychiatric unit to continue on with treatment as an outpatient. The patient agreed that is they were safe for this disposition. The patient was considered to be able to participate in informed consent and decision making with respect to medical, legal, and financial issues of the time of discharge. At the time of discharge the patient adamantly denied any concerns for l ethality including suicidal or homicidal thoughts ideations or plans and was future oriented toward ongoing mental health care. Time spent discussing smoking cessation with patient: 3 to 10 minutes Does patient wish to continue nicotine replacement upon disc: No (Not applicable) - Time Spent with Patient Total time spent providing and/or coordinating discharge services: 20 Less than 30 minutes Specific discharge activities: Interval history reviewed. Available labs reviewed . Psychotherapy provided. Patient had an opportunity to ask questions and address concerns. Patient was in agreement with the treatment plan. The risks benefits and side effects of medications were discussed with the patient, including alternatives and treatment. The patient was educated on the abstaining from any alcohol or illicit substances, following up with all scheduled appointments, and taking all medications as prescribed. Assessment and Plan - Patient/Caregiver Discharge Instructions Activity: resume usual activities as tolerated Diet: regular diet Additional Instructions: Continue current medications. Follow up with outpatient mental health. Encourage continued therapy in a group or individual setting. The patient was discharged to home. You have had elevated blood pressure readings during your hospital stay. Please follow-up with your outpatient primary care physician to address the possibility of adjusting your antihypertensive medications - Follow up Plan Follow up with: [facility] [Outside] - 02/21/19 10:00 am (You have an appointment scheduled for Friday, February 22, 2019 at 1:30 PM with Rony West APRN, [facility]- for medication management. You have an appointment scheduled with Dr. Dylon Jimenez, PhD on Thursday, February 21, 2019 at 10:00 AM for Counseling. Please contact the office at least 24 hours in advance if you are unable to keep your appointment(s). ) Jayna Mann CNP [Partnered Physician] - 06/03/19 9:05 am (You have an appointment scheduled with your primary care provider Tiffany Mann CNP on Monday, June 03, 2019 at 9:05 AM Please contact the office at the number above at least 24 hours in advance if you are unable to keep this appointment. ) Functional capacity at discharge: independent ambulation Overall status at discharge: Stable Disposition: Home, Self-Care Quality - Multiple Antipsychotics Patient discharged on 2 or more antipsychotic medications: No Procedures - Procedures Procedures: Medication Management, Crisis Stabilization, Supportive Therapy, Group Therapy, Psychoeducational Therapy
[2019-01-27] MEDS: Levothyroxine 25 MCG TABLET PO SCH (06:37)
[2019-01-27] MEDS: rOPINIRole 1 MG TABLET PO SCH (09:00)
[2019-01-27] MEDS: Metoprolol XL (24 HR) Succ 50 MG TAB.ER.24H PO SCH (09:00)
[2019-01-27] MEDS: Gabapentin 300 MG CAPSULE PO SCH (09:00)
[2019-01-27] MEDS: BuPROPion XL (24 HR) 150 MG TABLET PO SCH (09:01)
[2019-01-27] MEDS: OXcarbazepine 150 MG TABLET PO SCH (09:01)
[2019-01-27 09:27] VITALS: BP 135/76
[2019-01-27] MEDS ORDERED: Cholecalciferol (D-3) 1,000 UNIT TABLET PO SCH (21:00)
== END 2019-01-27 09:25 | disposition home or self-care (01) | DRG 885 ==
LOC: EMEROOARM 15:24 → 1ANU 19:29 → SUATTDRO 19:29 → 1ANU 20:26
PROVIDERS: ADMIT Psychiatry & Neurology Psychiatry; ATTEND Psychiatry & Neurology Psychiatry

== ENCOUNTER 2021-01-26 17:54 | Observation (INO) ==
[2021-01-26 18:39] LABS: Amorphous Sediment,Urine Few per hpf (None-Few); Bacteria,Urine Few per hpf (None-Few); Bilirubin,Urine Negative (Negative); Blood,Urine Trace (Negative); Clarity,Urine Turbid (Clear); Color,Urine Yellow (Yellow); Glucose,Urine (UA) Normal (Normal); Hyaline Casts,Urine Few per lpf (None Seen); Ketones,Urine Negative (Negative); Leukocyte Esterase,Urine Large (Negative); Nitrite,Urine Negative (Negative); Protein,Urine 30 mg/dL (Neg-Trace); Specific Gravity,Urine 1.023 (1.010-1.025); Squamous Epithelial Cell,Urine Moderate per hpf (None-Few); Transitional Epi Cells,Urine Few per hpf (None-Few); Urobilinogen,Urine Normal (Normal); WBC,Urine 30-50 per hpf (0-3)
[2021-01-26 18:59] LABS: Basophils % 0.6 %; Eosinophils # 0.2 K/mcL (0.0-0.6); Eosinophils % 3.3 %; Hematocrit 33.5 % (35.3-44.9); Immature Granulocytes % 2.6 % (0-4); Lymphocytes # 1.9 K/mcL (0.6-4.6); Lymphocytes % 26.9 %; Mean Corpuscular HGB Conc 32.8 g/dL (31.6-35.5); Mean Corpuscular Hemoglobin 28.8 pg (28.0-33.3); Mean Corpuscular Volume 87.7 fL (83.0-100.0); Monocytes # 0.3 K/mcL (0.0-1.3); Monocytes % 4.6 %; Neutrophils # 4.3 K/mcL (1.6-8.9); Platelet Count 147 K/mcL (140-400); Red Blood Count 3.82 M/mcL (3.82-4.97); Red Cell Distribution Width 12.1 % (11.5-14.5)
[2021-01-26 19:20] LABS: Platelet Estimate Normal (Normal); Reactive Lymphocytes Present (Not Present)
[2021-01-26 19:21] LABS: BUN/Creatinine Ratio 21 (6-26); Blood Urea Nitrogen 22 mg/dL (8-23); Calcium 8.5 mg/dL (8.6-10.3); Carbon Dioxide 29 mEq/L (23-29); Chloride 106 mEq/L (98-107); Glucose 117 mg/dL (70-105); Osmolality,Calculated 294 (280-300); Potassium 4.3 mEq/L (3.5-5.1); Sodium 140 mEq/L (136-145); Troponin I < 0.03 ng/mL (< 0.04); eGFR For African Americans > 60 (> 60); eGFR For Non-African Americans 51 (> 60)
[2021-01-26] MEDS ORDERED: Aspirin 325 MG TABLET PO ONE (20:29)
[2021-01-26] MEDS ORDERED: Acetaminophen 325 MG TABLET PO PRN (22:55)
[2021-01-26] MEDS ORDERED: Ondansetron 4 MG/2 ML VIAL IVP PRN (22:55)
[2021-01-26] MEDS ORDERED: Melatonin 3 MG TABLET PO PRN (22:55)
[2021-01-26] MEDS ORDERED: Naloxone 0.4 MG/ML INJ IVP PRN (22:55)
[2021-01-26] MEDS ORDERED: *HR* Promethazine 25 MG/ML VIAL IM PRN (22:55)
[2021-01-26] MEDS ORDERED: traZODone 50 MG TABLET PO PRN (23:07)
[2021-01-26] MEDS ORDERED: hydrOXYzine pamoate 25 MG CAPSULE PO PRN (23:07)
[2021-01-27] MEDS ORDERED: cefTRIAXone 1,000 MG in Water for inj. (sterile) 10 ML IVP ONE (00:33)
[2021-01-27] MEDS ORDERED: Ipratropium/Albuterol Neb 3 ML IH PRN (01:13)
[2021-01-27 03:06] LABS: Basophils % 0.6 %; Eosinophils # 0.3 K/mcL (0.0-0.6); Eosinophils % 4.2 %; Hematocrit 31.6 % (35.3-44.9); Hemoglobin 10.6 g/dL (11.5-15.4); Lymphocytes # 1.7 K/mcL (0.6-4.6); Lymphocytes % 27.2 %; Mean Corpuscular HGB Conc 33.5 g/dL (31.6-35.5); Mean Corpuscular Hemoglobin 29.1 pg (28.0-33.3); Mean Corpuscular Volume 86.8 fL (83.0-100.0); Mean Platelet Volume 10.4 fL (9.4-12.4); Monocytes # 0.4 K/mcL (0.0-1.3); Monocytes % 5.9 %; Neutrophils # 3.7 K/mcL (1.6-8.9); Platelet Count 133 K/mcL (140-400); Red Blood Count 3.64 M/mcL (3.82-4.97); Segmented Neutrophils % 59.1 %; White Blood Count 6.2 K/mcL (4.3-11.1)
[2021-01-27 03:15] LABS: INR 1.1; Prothrombin Time 12.2 Seconds (9.4-12.1)
[2021-01-27] MEDS ORDERED: rOPINIRole 1 MG TABLET PO ONE (03:17)
[2021-01-27 03:20] LABS: BUN/Creatinine Ratio 20 (6-26); Blood Urea Nitrogen 20 mg/dL (8-23); Carbon Dioxide 28 mEq/L (23-29); Chloride 108 mEq/L (98-107); Glucose 120 mg/dL (70-105); Magnesium 1.5 mg/dL (1.6-2.6); Osmolality,Calculated 296 (280-300); Potassium 3.8 mEq/L (3.5-5.1); Sodium 141 mEq/L (136-145); Troponin I < 0.03 ng/mL (< 0.04); eGFR For African Americans > 60 (> 60); eGFR For Non-African Americans 55 (> 60)
[2021-01-27 03:33] LABS: Thyroid Stimulating Hormone 4.872 mcIU/mL (0.340-5.600)
[2021-01-27 03:59] LABS: Platelet Estimate Normal (Normal); Reactive Lymphocytes Present (Not Present)
[2021-01-27] MEDS ORDERED: *HR* Enoxaparin 40 MG/0.4 ML SYRINGE SQ SCH (06:00)
[2021-01-27 06:30] LABS: Adenovirus Not Detected (Not Detect); Coronavirus 229E Not Detected (Not Detect); Coronavirus HKU1 Not Detected (Not Detect); Coronavirus NL63 Not Detected (Not Detect); Coronavirus OC43 Not Detected (Not Detect); Human Metapneumovirus Not Detected (Not Detect); Human Rhinovirus/Enterovirus Not Detected (Not Detect); Influenza A Subtype 2009 H1 Not Detected (Not Detect); Influenza B Not Detected (Not Detect); Parainfluenza Virus 1 Not Detected (Not Detect); Parainfluenza Virus 2 Not Detected (Not Detect); Parainfluenza Virus 3 Not Detected (Not Detect); Parainfluenza Virus 4 Not Detected (Not Detect); Respiratory Syncytial Virus Not Detected (Not Detect)
[2021-01-27] MEDS ORDERED: Levothyroxine 25 MCG TABLET PO SCH (06:30)
[2021-01-27 06:31] LABS: Bordetella Pertussis Not Detected (Not Detect); Chlamydophila pneumoniae Not Detected (Not Detect); Mycoplasma pneumoniae Not Detected (Not Detect)
[2021-01-27] MEDS ORDERED: Gabapentin 300 MG CAPSULE PO SCH ×2 (08:00→21:00)
[2021-01-27] MEDS ORDERED: Isovue-370 500 ML BOTTLE IVP ONE (08:01)
[2021-01-27] MEDS: rOPINIRole 1 MG TABLET PO SCH ×2 (08:27→09:28)
[2021-01-27] MEDS ORDERED: BuPROPion XL (24 HR) 150 MG TABLET PO SCH (09:00)
[2021-01-27] MEDS ORDERED: Metoprolol XL (24 HR) Succ 50 MG TAB.ER.24H PO SCH (09:00)
[2021-01-27] MEDS ORDERED: OXcarbazepine 150 MG TABLET PO SCH (09:00)
[2021-01-27] MEDS ORDERED: Budesonide/Formoterol 80/4.5 1 PUFF INH IH SCH (10:00)
[2021-01-27 10:45] VITALS: BP 104/66
[2021-01-27] MEDS ORDERED: cefTRIAXone 1,000 MG in Water for inj. (sterile) 10 ML IVP SCH (18:00)
[2021-01-27] MEDS ORDERED: rOPINIRole 1 MG TABLET PO SCH (18:00)
[2021-01-27] MEDS ORDERED: risperiDONE 1 MG TABLET PO SCH (21:00)
== END 2021-01-27 13:13 | disposition home or self-care (01) ==
LOC: 3BNU 17:54 → EMEROOARM 17:54 → 3BNU 22:20
PROVIDERS: ADMIT Internal Medicine; ATTEND Internal Medicine

== ENCOUNTER 2022-04-13 18:49 | Inpatient (IN) ==
[2022-04-13] MEDS ORDERED: cefTRIAXone 1,000 MG in 0.9 % Sodium Chloride 10 ML IVP ONE (19:38)
[2022-04-13] MEDS ORDERED: Azithromycin 500 MG in 0.9 % Sodium Chloride 250 ML IVPB ONE (19:38)
[2022-04-13 19:59] LABS: Basophils # 0.1 K/mcL (0.0-0.2); Basophils % 0.6 %; Eosinophils # 0.3 K/mcL (0.0-0.6); Eosinophils % 1.3 %; Hematocrit 37.1 % (35.3-44.9); Hemoglobin 12.1 g/dL (11.5-15.4); Immature Granulocytes % 5.8 % (0-4); Lymphocytes # 1.7 K/mcL (0.6-4.6); Lymphocytes % 8.1 %; Mean Corpuscular HGB Conc 32.6 g/dL (31.6-35.5); Mean Corpuscular Volume 85.9 fL (83.0-100.0); Mean Platelet Volume 10.5 fL (9.4-12.4); Monocytes # 0.9 K/mcL (0.0-1.3); Monocytes % 4.2 %; Neutrophils # 16.9 K/mcL (1.6-8.9); Platelet Count 212 K/mcL (140-400); Red Blood Count 4.32 M/mcL (3.82-4.97); Red Cell Distribution Width 12.5 % (11.5-14.5); White Blood Count 21.1 K/mcL (4.3-11.1)
[2022-04-13 20:00] LABS: VBG HCO3 25 mEq/L (21-27); VBG PCO2 48 mmHg (41-51); VBG PH 7.32 pH Units (7.32-7.42); VBG PO2 38 mmHg (25-50)
[2022-04-13 20:09] LABS: INR 1.2
[2022-04-13 20:11] LABS: Activated Partial Thrombo Time 31.7 Seconds (26.0-36.0)
[2022-04-13 20:27] LABS: Alanine Aminotransferase 50 Units/L (7-52); Albumin 3.2 g/dL (3.5-5.7); Albumin/Globulin Ratio 1.1 (1.1-2.2); Alkaline Phosphatase 181 Units/L (34-104); Aspartate Amino Transferase 28 Units/L (13-39); BUN/Creatinine Ratio 22 (6-26); Bilirubin,Direct 0.1 mg/dL (0.0-0.2); Bilirubin,Indirect 0.3 mg/dL (0.0-1.0); Bilirubin,Total 0.4 mg/dL (0.3-1.0); Blood Urea Nitrogen 29 mg/dL (8-23); Calcium 8.8 mg/dL (8.6-10.3); Carbon Dioxide 25 mEq/L (23-29); Chloride 101 mEq/L (98-107); Glucose 216 mg/dL (70-105); Magnesium 1.6 mg/dL (1.6-2.6); Osmolality,Calculated 290 (280-300); Phosphorous 4.5 mg/dL (2.7-4.5); Potassium 3.7 mEq/L (3.5-5.1); Sodium 134 mEq/L (136-145); Total Protein 6.2 g/dL (6.4-8.9); Troponin I < 0.03 ng/mL (< 0.04); eGFR For African Americans 48 (> 60); eGFR For Non-African Americans 40 (> 60)
[2022-04-13] MEDS: 0.9 % Sodium Chloride 1,000 ML IVC SCH ×2 (20:29→22:26)
[2022-04-13 22:33] LABS: Bacteria,Urine Few per hpf (None-Few); Bilirubin,Urine Negative (Negative); Blood,Urine Negative (Negative); Clarity,Urine Turbid (Clear); Color,Urine Yellow (Yellow); Glucose,Urine (UA) Normal (Normal); Hyaline Casts,Urine Few per lpf (None Seen); Ketones,Urine Negative (Negative); Leukocyte Esterase,Urine Moderate (Negative); Mucus,Urine Few per lpf (None-Few); Nitrite,Urine Negative (Negative); Protein,Urine 30 mg/dL (Neg-Trace); RBC,Urine 0-3 per hpf (0-3); Specific Gravity,Urine 1.021 (1.010-1.025); Squamous Epithelial Cell,Urine Moderate per hpf (None-Few); Urobilinogen,Urine Normal (Normal)
[2022-04-13] MEDS ORDERED: Iopamidol - 370 500 ML MLS IVP ONE (22:42)
[2022-04-13 22:58] LABS: Influenza A PCR Negative (Negative); Influenza B PCR Negative (Negative); Resp. Syncytial Virus PCR Negative (Negative)
[2022-04-13 23:29] LABS: SARS-CoV-2 by PCR (In House) Negative (Negative)
[2022-04-13] MEDS ORDERED: Ketorolac 30 MG/ML VIAL IVP ONE (23:39)
[2022-04-14] MEDS ORDERED: Naloxone 0.4 MG/ML INJ IVP PRN
[2022-04-14] MEDS ORDERED: 0.9 % Sodium Chloride 1,000 ML IVC SCH
[2022-04-14] MEDS ORDERED: Ondansetron 4 MG/2 ML VIAL IVP PRN
[2022-04-14] MEDS: Acetaminophen 325 MG TABLET PO PRN ×2 (00:17→23:52)
[2022-04-14] MEDS ORDERED: *HR* Heparin 5,000 UNIT/ML VIAL IVP PRN ×2 (01:47)
[2022-04-14] MEDS ORDERED: *HR* Heparin 5,000 UNIT/ML VIAL IVP ONE (01:47)
[2022-04-14] MEDS: Heparin 25,000UNIT/250ML 1/2NS 25,000 UNIT/250 ML IV.SOLN IVC SCH ×2 (02:33→23:52)
[2022-04-14] MEDS: Ipratropium/Albuterol Neb 3 ML IH SCH ×6 (05:20→23:48)
[2022-04-14] MEDS: *HR* HYDROmorphone (PF) 1 MG/ML SYRINGE IVP PRN (07:33)
[2022-04-14] MEDS ORDERED: Ipratropium/Albuterol Neb 3 ML IH ONE (11:17)
[2022-04-14 13:31] LABS: RBC,Pleural Fluid 394000 RBC/mcL
[2022-04-14 13:36] LABS: Total Protein,Pleural Fluid 3.7 g/dL
[2022-04-14 13:42] LABS: Appearance of Pleural Fl Bloody (Clear)
[2022-04-14 14:29] LABS: Eosinophils # 0.3 K/mcL (0.0-0.6); Hematocrit 33.9 % (35.3-44.9); Hemoglobin 10.6 g/dL (11.5-15.4); Mean Corpuscular HGB Conc 31.3 g/dL (31.6-35.5); Mean Corpuscular Hemoglobin 27.4 pg (28.0-33.3); Mean Corpuscular Volume 87.6 fL (83.0-100.0); Mean Platelet Volume 10.2 fL (9.4-12.4); Platelet Count 171 K/mcL (140-400); Red Blood Count 3.87 M/mcL (3.82-4.97); Red Cell Distribution Width 12.8 % (11.5-14.5); White Blood Count 15.8 K/mcL (4.3-11.1)
[2022-04-14 14:37] LABS: Basophils,Pleural Fluid 0 %
[2022-04-14 14:41] LABS: BUN/Creatinine Ratio 21 (6-26); Blood Urea Nitrogen 21 mg/dL (8-23); Calcium 8.2 mg/dL (8.6-10.3); Carbon Dioxide 24 mEq/L (23-29); Chloride 109 mEq/L (98-107); Glucose 160 mg/dL (70-105); Osmolality,Calculated 292 (280-300); Sodium 138 mEq/L (136-145); eGFR For African Americans > 60 (> 60); eGFR For Non-African Americans 55 (> 60)
[2022-04-14 14:42] LABS: BUN/Creatinine Ratio 21 (6-26); Blood Urea Nitrogen 21 mg/dL (8-23); Calcium 8.2 mg/dL (8.6-10.3); Carbon Dioxide 24 mEq/L (23-29); Chloride 110 mEq/L (98-107); Glucose 160 mg/dL (70-105); Lactate Dehydrogenase 132 Units/L (140-271); Osmolality,Calculated 294 (280-300); Potassium 4.1 mEq/L (3.5-5.1); Sodium 139 mEq/L (136-145); Total Protein 5.4 g/dL (6.4-8.9); eGFR For African Americans > 60 (> 60); eGFR For Non-African Americans 54 (> 60)
[2022-04-14 15:31] LABS: Neutrophils # 14.9 K/mcL (1.6-8.9)
[2022-04-14 15:32] LABS: Platelet Estimate Normal (Normal)
[2022-04-14] MEDS: Piperacillin/Tazobactam 3.375 GM in 0.9 % Sodium Chloride Mini Bag 100 ML IVPB SCH ×2 (15:54→23:51)
[2022-04-14] MEDS ORDERED: hydrOXYzine pamoate 25 MG CAPSULE PO PRN (16:03)
[2022-04-14] MEDS ORDERED: Ergocalciferol (VIT D2) 50,000 UNIT (1.25MG) CAP PO SCH (16:15)
[2022-04-14] MEDS: Levothyroxine 25 MCG TABLET PO SCH (18:20)
[2022-04-14] MEDS: Metoprolol XL (24 HR) Succ 50 MG TAB.ER.24H PO SCH (18:25)
[2022-04-14] MEDS: Albuterol 2.5 MG/3 ML NEBULIZER IH SCH ×2 (19:30→23:48)
[2022-04-14] MEDS: rOPINIRole 1 MG TABLET PO SCH (20:33)
[2022-04-14] MEDS: QUEtiapine Fumarate 100 MG TABLET PO SCH (20:33)
[2022-04-14] MEDS: traZODone 50 MG TABLET PO SCH (20:34)
[2022-04-14 20:37] LABS: Hemoglobin 10.4 g/dL (11.5-15.4); Mean Corpuscular HGB Conc 32.5 g/dL (31.6-35.5); Mean Corpuscular Hemoglobin 28.3 pg (28.0-33.3); Platelet Count 171 K/mcL (140-400); Red Blood Count 3.68 M/mcL (3.82-4.97); Red Cell Distribution Width 12.8 % (11.5-14.5)
[2022-04-15] MEDS: Albuterol 2.5 MG/3 ML NEBULIZER IH SCH (03:57)
[2022-04-15] MEDS: Ipratropium/Albuterol Neb 3 ML IH SCH ×6 (03:57→23:33)
[2022-04-15] MEDS: Levothyroxine 25 MCG TABLET PO SCH (05:31)
[2022-04-15 05:45] LABS: BUN/Creatinine Ratio 17 (6-26); Blood Urea Nitrogen 17 mg/dL (8-23); Calcium 7.8 mg/dL (8.6-10.3); Carbon Dioxide 23 mEq/L (23-29); Chloride 107 mEq/L (98-107); Glucose 187 mg/dL (70-105); Osmolality,Calculated 288 (280-300); Potassium 4.1 mEq/L (3.5-5.1); Sodium 136 mEq/L (136-145); eGFR For African Americans > 60 (> 60); eGFR For Non-African Americans 53 (> 60)
[2022-04-15] MEDS: BuPROPion XL (24 HR) 150 MG TABLET PO SCH (08:25)
[2022-04-15] MEDS: Acetaminophen 325 MG TABLET PO PRN ×2 (08:25→16:32)
[2022-04-15] MEDS: Metoprolol XL (24 HR) Succ 50 MG TAB.ER.24H PO SCH (08:26)
[2022-04-15] MEDS: rOPINIRole 1 MG TABLET PO SCH ×2 (08:26→20:33)
[2022-04-15] MEDS: Piperacillin/Tazobactam 3.375 GM in 0.9 % Sodium Chloride Mini Bag 100 ML IVPB SCH ×3 (08:26→23:12)
[2022-04-15] MEDS: QUEtiapine Fumarate 100 MG TABLET PO SCH ×2 (08:26→20:33)
[2022-04-15] MEDS: Vancomycin 1,500 MG/265 ML IV.SOLN IVPB SCH (08:53)
[2022-04-15] MEDS ORDERED: Mirabegron [Myrbetriq] 25 MG Tab.Er.24h PO SCH (09:00)
[2022-04-15 10:16] LABS: Eosinophils # 0.2 K/mcL (0.0-0.6); Hematocrit 29.6 % (35.3-44.9); Hemoglobin 9.6 g/dL (11.5-15.4); Mean Corpuscular HGB Conc 32.4 g/dL (31.6-35.5); Mean Corpuscular Hemoglobin 28.2 pg (28.0-33.3); Mean Corpuscular Volume 87.1 fL (83.0-100.0); Mean Platelet Volume 10.2 fL (9.4-12.4); Platelet Count 161 K/mcL (140-400); Red Cell Distribution Width 12.8 % (11.5-14.5)
[2022-04-15 10:35] LABS: BUN/Creatinine Ratio 16 (6-26); Blood Urea Nitrogen 16 mg/dL (8-23); Calcium 7.9 mg/dL (8.6-10.3); Carbon Dioxide 24 mEq/L (23-29); Chloride 105 mEq/L (98-107); Glucose 183 mg/dL (70-105); Osmolality,Calculated 286 (280-300); Potassium 3.9 mEq/L (3.5-5.1); Sodium 135 mEq/L (136-145); eGFR For African Americans > 60 (> 60); eGFR For Non-African Americans 55 (> 60)
[2022-04-15 10:52] LABS: Lymphocytes # 1.4 K/mcL (0.6-4.6); Monocytes # 0.7 K/mcL (0.0-1.3); Neutrophils # 8.9 K/mcL (1.6-8.9); Platelet Estimate Normal (Normal); Reactive Lymphocytes Present (Not Present)
[2022-04-15] MEDS ORDERED: Iopamidol - 370 500 ML MLS IVP ONE (11:25)
[2022-04-15 17:01] LABS: % Iron Saturation 15 % (15-50); Ferritin 971 ng/mL (10-120); Iron 28 mcg/dL (50-170); Transferrin 132 mg/dL (203-362)
[2022-04-15] MEDS: Heparin 25,000UNIT/250ML 1/2NS 25,000 UNIT/250 ML IV.SOLN IVC SCH (17:50)
[2022-04-15] MEDS: traZODone 50 MG TABLET PO SCH (20:33)
[2022-04-16] MEDS: Ipratropium/Albuterol Neb 3 ML IH SCH ×6 (04:28→22:53)
[2022-04-16 04:34] LABS: Basophils % 0.3 %; Eosinophils # 0.3 K/mcL (0.0-0.6); Eosinophils % 2.1 %; Hematocrit 26.6 % (35.3-44.9); Hemoglobin 8.5 g/dL (11.5-15.4); Immature Granulocytes % 4.6 % (0-4); Lymphocytes % 8.4 %; Mean Corpuscular Hemoglobin 27.4 pg (28.0-33.3); Mean Corpuscular Volume 85.8 fL (83.0-100.0); Monocytes % 8.4 %; Neutrophils # 9.2 K/mcL (1.6-8.9); Platelet Count 189 K/mcL (140-400); Red Cell Distribution Width 12.8 % (11.5-14.5); Segmented Neutrophils % 76.2 %; White Blood Count 12.1 K/mcL (4.3-11.1)
[2022-04-16 04:51] LABS: BUN/Creatinine Ratio 12 (6-26); Blood Urea Nitrogen 11 mg/dL (8-23); Calcium 8.1 mg/dL (8.6-10.3); Carbon Dioxide 26 mEq/L (23-29); Chloride 105 mEq/L (98-107); Glucose 188 mg/dL (70-105); Osmolality,Calculated 292 (280-300); Sodium 139 mEq/L (136-145); eGFR For African Americans > 60 (> 60); eGFR For Non-African Americans > 60 (> 60)
[2022-04-16] MEDS: Levothyroxine 25 MCG TABLET PO SCH (06:13)
[2022-04-16] MEDS: Metoprolol XL (24 HR) Succ 50 MG TAB.ER.24H PO SCH (08:38)
[2022-04-16] MEDS: Piperacillin/Tazobactam 3.375 GM in 0.9 % Sodium Chloride Mini Bag 100 ML IVPB SCH ×2 (08:38→15:58)
[2022-04-16] MEDS: rOPINIRole 1 MG TABLET PO SCH ×2 (08:38→20:38)
[2022-04-16] MEDS: BuPROPion XL (24 HR) 150 MG TABLET PO SCH (08:38)
[2022-04-16] MEDS: Vancomycin 1,500 MG/265 ML IV.SOLN IVPB SCH (08:39)
[2022-04-16] MEDS: QUEtiapine Fumarate 100 MG TABLET PO SCH ×2 (08:42→20:38)
[2022-04-16 09:21] LABS: Fluid Source for Cholesterol PLEURAL FLUID
[2022-04-16 09:53] LABS: Cholesterol,Body Fluid 85 mg/dL
[2022-04-16] MEDS: Heparin 25,000UNIT/250ML 1/2NS 25,000 UNIT/250 ML IV.SOLN IVC SCH (10:11)
[2022-04-16] MEDS: traZODone 50 MG TABLET PO SCH (20:38)
[2022-04-16] MEDS: Acetaminophen 325 MG TABLET PO PRN (20:38)
[2022-04-17] MEDS: *HR* HYDROmorphone (PF) 1 MG/ML SYRINGE IVP PRN ×2 (00:05→15:00)
[2022-04-17] MEDS: Piperacillin/Tazobactam 3.375 GM in 0.9 % Sodium Chloride Mini Bag 100 ML IVPB SCH ×3 (00:24→17:23)
[2022-04-17 00:53] LABS: Basophils % 0.3 %; Eosinophils # 0.2 K/mcL (0.0-0.6); Eosinophils % 1.5 %; Hemoglobin 8.8 g/dL (11.5-15.4); Immature Granulocytes % 4.2 % (0-4); Lymphocytes # 1.3 K/mcL (0.6-4.6); Lymphocytes % 10.5 %; Mean Corpuscular HGB Conc 32.6 g/dL (31.6-35.5); Mean Corpuscular Hemoglobin 28.2 pg (28.0-33.3); Mean Corpuscular Volume 86.5 fL (83.0-100.0); Mean Platelet Volume 9.4 fL (9.4-12.4); Monocytes # 1.1 K/mcL (0.0-1.3); Monocytes % 9.4 %; Neutrophils # 8.9 K/mcL (1.6-8.9); Platelet Count 171 K/mcL (140-400); Red Blood Count 3.12 M/mcL (3.82-4.97); Red Cell Distribution Width 12.6 % (11.5-14.5); Segmented Neutrophils % 74.1 %
[2022-04-17 01:10] LABS: BUN/Creatinine Ratio 11 (6-26); Blood Urea Nitrogen 8 mg/dL (8-23); Calcium 8.2 mg/dL (8.6-10.3); Carbon Dioxide 24 mEq/L (23-29); Chloride 105 mEq/L (98-107); Glucose 168 mg/dL (70-105); Osmolality,Calculated 284 (280-300); Potassium 3.5 mEq/L (3.5-5.1); Sodium 136 mEq/L (136-145); eGFR For African Americans > 60 (> 60); eGFR For Non-African Americans > 60 (> 60)
[2022-04-17] MEDS: Heparin 25,000UNIT/250ML 1/2NS 25,000 UNIT/250 ML IV.SOLN IVC SCH (03:08)
[2022-04-17] MEDS: Ipratropium/Albuterol Neb 3 ML IH SCH ×5 (04:00→19:48)
[2022-04-17] MEDS: Levothyroxine 25 MCG TABLET PO SCH (06:13)
[2022-04-17] MEDS: Metoprolol XL (24 HR) Succ 50 MG TAB.ER.24H PO SCH (08:59)
[2022-04-17] MEDS: QUEtiapine Fumarate 100 MG TABLET PO SCH ×2 (08:59→22:12)
[2022-04-17] MEDS: BuPROPion XL (24 HR) 150 MG TABLET PO SCH (09:00)
[2022-04-17] MEDS: Vancomycin 1,500 MG/265 ML IV.SOLN IVPB SCH (09:03)
[2022-04-17] MEDS: rOPINIRole 1 MG TABLET PO SCH ×2 (09:35→22:12)
[2022-04-17] MEDS: traZODone 50 MG TABLET PO SCH (22:12)
[2022-04-18] MEDS: Ipratropium/Albuterol Neb 3 ML IH SCH ×7 (00:02→23:05)
[2022-04-18] MEDS: Acetaminophen 325 MG TABLET PO PRN (01:03)
[2022-04-18] MEDS: Piperacillin/Tazobactam 3.375 GM in 0.9 % Sodium Chloride Mini Bag 100 ML IVPB SCH ×3 (01:06→17:08)
[2022-04-18 02:41] LABS: Hematocrit 25.5 % (35.3-44.9); Mean Corpuscular HGB Conc 31.4 g/dL (31.6-35.5); Mean Corpuscular Hemoglobin 27.3 pg (28.0-33.3); Mean Platelet Volume 10.1 fL (9.4-12.4); Platelet Count 213 K/mcL (140-400); Red Blood Count 2.93 M/mcL (3.82-4.97); Red Cell Distribution Width 12.9 % (11.5-14.5); White Blood Count 10.1 K/mcL (4.3-11.1)
[2022-04-18 02:44] LABS: INR 1.3; Prothrombin Time 14.1 Seconds (9.4-12.1)
[2022-04-18 03:00] LABS: Blood Urea Nitrogen 9 mg/dL (8-23); Calcium 8.6 mg/dL (8.6-10.3); Carbon Dioxide 28 mEq/L (23-29); Chloride 104 mEq/L (98-107); Glucose 129 mg/dL (70-105); Osmolality,Calculated 284 (280-300); Potassium 3.9 mEq/L (3.5-5.1); Sodium 137 mEq/L (136-145)
[2022-04-18 03:45] LABS: BUN/Creatinine Ratio 9 (6-26); eGFR For African Americans > 60 (> 60); eGFR For Non-African Americans 54 (> 60)
[2022-04-18 03:46] LABS: Eosinophils # 0.3 K/mcL (0.0-0.6); Monocytes # 0.7 K/mcL (0.0-1.3); Neutrophils # 7.9 K/mcL (1.6-8.9)
[2022-04-18 03:47] LABS: Platelet Estimate Normal (Normal); Toxic Granulation Present (Not Present)
[2022-04-18] MEDS: Levothyroxine 25 MCG TABLET PO SCH (05:09)
[2022-04-18] MEDS ORDERED: Dextrose Gel 15 GM/37.5 ML TUBE PO PRN ×4 (07:50→13:50)
[2022-04-18] MEDS ORDERED: D5% in Water 1,000 ML IVC PRN ×2 (07:50→13:50)
[2022-04-18] MEDS ORDERED: *HR* Dextrose 50 % in Water (Syg) 50 ML SYRINGE IVP PRN ×2 (07:50→13:50)
[2022-04-18] MEDS: rOPINIRole 1 MG TABLET PO SCH ×2 (08:36→20:02)
[2022-04-18] MEDS: QUEtiapine Fumarate 100 MG TABLET PO SCH ×2 (08:37→20:03)
[2022-04-18] MEDS: BuPROPion XL (24 HR) 150 MG TABLET PO SCH (08:37)
[2022-04-18] MEDS: Metoprolol XL (24 HR) Succ 50 MG TAB.ER.24H PO SCH (08:46)
[2022-04-18] MEDS ORDERED: *HR* FentaNYL (PF) 100 MCG/2 ML VIAL ONE ×2 (08:49→09:57)
[2022-04-18] MEDS ORDERED: *HR* Propofol 200 MG/20 ML VIAL IVP ONE (08:49)
[2022-04-18] MEDS ORDERED: Ondansetron 4 MG/2 ML VIAL ONE (08:50)
[2022-04-18] MEDS ORDERED: Lidocaine -MPF 2% 5 ML VIAL ONE (08:50)
[2022-04-18] MEDS ORDERED: Lidocaine HCL 4 ML Topical Solution (Laryng-O-Jet Kit Sterile Pak) TP ONE (08:50)
[2022-04-18] MEDS ORDERED: *HR* Rocuronium Bromide 50 MG/5 ML VIAL ONE ×2 (08:50→10:05)
[2022-04-18] MEDS ORDERED: *HR* Succinylcholine 200 MG/10 ML VIAL IVP ONE (08:50)
[2022-04-18] MEDS ORDERED: *HR* HYDROMORPHONE 2 MG/ML VIAL ONE (10:31)
[2022-04-18] MEDS ORDERED: Sugammadex Sodium 200 MG/2 ML VIAL IV ONE (10:45)
[2022-04-18] MEDS ORDERED: *HR* HYDROmorphone 2 MG TABLET PO PRN (11:48)
[2022-04-18] MEDS ORDERED: Famotidine 20 MG/2 ML VIAL IVP ONE (11:48)
[2022-04-18] MEDS ORDERED: Ondansetron 4 MG/2 ML VIAL IVP PRN (11:48)
[2022-04-18] MEDS ORDERED: Pregabalin 75 MG CAPSULE PO ONE (11:48)
[2022-04-18] MEDS ORDERED: *HR* OxyCODONE Immed Rel 5 MG TABLET PO PRN (11:48)
[2022-04-18] MEDS ORDERED: Acetaminophen IV 1,000 MG/100 ML BAG IVPB ONE (11:48)
[2022-04-18] MEDS ORDERED: *HR* Labetalol 20 MG/4 ML SYRINGE IVP PRN (11:48)
[2022-04-18] MEDS: *HR* HYDROmorphone (PF) 1 MG/ML SYRINGE IVP PRN ×2 (11:56→12:20)
[2022-04-18 13:46] LABS: Hematocrit 28.2 % (35.3-44.9)
[2022-04-18] MEDS ORDERED: Naloxone 0.4 MG/ML INJ IVP PRN (13:50)
[2022-04-18] MEDS: 0.9 % Sodium Chloride 1,000 ML IVC SCH (14:14)
[2022-04-18] MEDS: Vancomycin 1,500 MG/265 ML IV.SOLN IVPB SCH (17:02)
[2022-04-18] MEDS: traZODone 50 MG TABLET PO SCH (20:03)
[2022-04-19] MEDS: Acetaminophen 325 MG TABLET PO PRN (00:12)
[2022-04-19] MEDS: 0.9 % Sodium Chloride 1,000 ML IVC SCH ×2 (00:13→12:54)
[2022-04-19] MEDS: hydrOXYzine pamoate 25 MG CAPSULE PO PRN ×2 (00:13→20:49)
[2022-04-19] MEDS: Piperacillin/Tazobactam 3.375 GM in 0.9 % Sodium Chloride Mini Bag 100 ML IVPB SCH ×3 (00:13→15:36)
[2022-04-19] MEDS: Ipratropium/Albuterol Neb 3 ML IH SCH ×6 (03:52→23:07)
[2022-04-19] MEDS: Levothyroxine 25 MCG TABLET PO SCH (05:51)
[2022-04-19] MEDS ORDERED: Vancomycin 1,500 MG/265 ML IV.SOLN IVPB SCH (09:00)
[2022-04-19] MEDS: Metoprolol XL (24 HR) Succ 50 MG TAB.ER.24H PO SCH (09:07)
[2022-04-19] MEDS: QUEtiapine Fumarate 100 MG TABLET PO SCH ×2 (09:07→20:49)
[2022-04-19] MEDS: rOPINIRole 1 MG TABLET PO SCH ×2 (09:08→20:49)
[2022-04-19] MEDS: BuPROPion XL (24 HR) 150 MG TABLET PO SCH (09:08)
[2022-04-19] MEDS: *HR* Heparin 5,000 UNIT/ML VIAL SQ SCH ×2 (15:37→20:50)
[2022-04-19] MEDS: Vancomycin 1,750 MG/517.5 ML IV.SOLN IVPB SCH (16:20)
[2022-04-19] MEDS: traZODone 50 MG TABLET PO SCH (20:49)
[2022-04-20] MEDS: Piperacillin/Tazobactam 3.375 GM in 0.9 % Sodium Chloride Mini Bag 100 ML IVPB SCH ×4 (00:22→23:23)
[2022-04-20] MEDS: 0.9 % Sodium Chloride 1,000 ML IVC SCH ×2 (02:50→09:51)
[2022-04-20 03:56] LABS: Basophils % 0.3 %; Eosinophils # 0.3 K/mcL (0.0-0.6); Eosinophils % 2.9 %; Hematocrit 24.1 % (35.3-44.9); Hemoglobin 7.8 g/dL (11.5-15.4); Lymphocytes % 10.1 %; Mean Corpuscular HGB Conc 32.4 g/dL (31.6-35.5); Mean Corpuscular Hemoglobin 27.7 pg (28.0-33.3); Mean Corpuscular Volume 85.5 fL (83.0-100.0); Mean Platelet Volume 9.4 fL (9.4-12.4); Monocytes # 0.7 K/mcL (0.0-1.3); Monocytes % 6.8 %; Neutrophils # 7.5 K/mcL (1.6-8.9); Platelet Count 242 K/mcL (140-400); Red Blood Count 2.82 M/mcL (3.82-4.97); Red Cell Distribution Width 12.7 % (11.5-14.5); Segmented Neutrophils % 74.9 %
[2022-04-20 04:10] LABS: BUN/Creatinine Ratio 12 (6-26); Blood Urea Nitrogen 9 mg/dL (8-23); Carbon Dioxide 30 mEq/L (23-29); Chloride 102 mEq/L (98-107); Glucose 143 mg/dL (70-105); Osmolality,Calculated 285 (280-300); Potassium 3.5 mEq/L (3.5-5.1); Sodium 137 mEq/L (136-145); eGFR For African Americans > 60 (> 60); eGFR For Non-African Americans > 60 (> 60)
[2022-04-20] MEDS: Ipratropium/Albuterol Neb 3 ML IH SCH ×6 (04:19→23:00)
[2022-04-20 04:36] LABS: Folate 10.4 ng/mL (3.0-16.0)
[2022-04-20] MEDS: *HR* Heparin 5,000 UNIT/ML VIAL SQ SCH ×3 (05:55→21:16)
[2022-04-20] MEDS: Levothyroxine 25 MCG TABLET PO SCH (05:55)
[2022-04-20] MEDS ORDERED: *HR* Labetalol 20 MG/4 ML SYRINGE IVP ONE ×2 (06:33→20:01)
[2022-04-20] MEDS: rOPINIRole 1 MG TABLET PO SCH ×2 (09:21→19:46)
[2022-04-20] MEDS: QUEtiapine Fumarate 100 MG TABLET PO SCH ×2 (09:21→19:47)
[2022-04-20] MEDS: BuPROPion XL (24 HR) 150 MG TABLET PO SCH (09:21)
[2022-04-20] MEDS: Metoprolol XL (24 HR) Succ 50 MG TAB.ER.24H PO SCH (09:21)
[2022-04-20] MEDS: Ondansetron 4 MG/2 ML VIAL IVP PRN (09:57)
[2022-04-20] MEDS: Cyanocobalamin (B-12) 1,000 MCG TABLET PO SCH (13:02)
[2022-04-20 13:36] LABS: Hematocrit 25.3 % (35.3-44.9); Hemoglobin 8.3 g/dL (11.5-15.4)
[2022-04-20] MEDS: Vancomycin 1,750 MG/517.5 ML IV.SOLN IVPB SCH (17:21)
[2022-04-20] MEDS: traZODone 50 MG TABLET PO SCH (19:46)
[2022-04-21] MEDS: *HR* Heparin 5,000 UNIT/ML VIAL SQ SCH ×3 (03:23→22:18)
[2022-04-21] MEDS: hydrOXYzine pamoate 25 MG CAPSULE PO PRN (03:23)
[2022-04-21] MEDS: Levothyroxine 25 MCG TABLET PO SCH (03:24)
[2022-04-21] MEDS ORDERED: *HR* Labetalol 20 MG/4 ML SYRINGE IVP ONE (03:28)
[2022-04-21] MEDS ORDERED: Sucralfate 1 GM TABLET PO ONE (03:30)
[2022-04-21] MEDS: Ondansetron 4 MG/2 ML VIAL IVP PRN ×2 (03:54→21:55)
[2022-04-21] MEDS: Ipratropium/Albuterol Neb 3 ML IH SCH ×5 (04:09→20:07)
[2022-04-21 04:38] LABS: Basophils # 0.1 K/mcL (0.0-0.2); Basophils % 0.6 %; Eosinophils # 0.4 K/mcL (0.0-0.6); Eosinophils % 3.2 %; Hematocrit 26.3 % (35.3-44.9); Hemoglobin 8.4 g/dL (11.5-15.4); Immature Granulocytes % 5.1 % (0-4); Lymphocytes # 1.2 K/mcL (0.6-4.6); Lymphocytes % 10.7 %; Mean Corpuscular HGB Conc 31.9 g/dL (31.6-35.5); Mean Corpuscular Hemoglobin 27.5 pg (28.0-33.3); Mean Corpuscular Volume 85.9 fL (83.0-100.0); Mean Platelet Volume 9.4 fL (9.4-12.4); Monocytes # 0.7 K/mcL (0.0-1.3); Neutrophils # 8.2 K/mcL (1.6-8.9); Platelet Count 251 K/mcL (140-400); Red Blood Count 3.06 M/mcL (3.82-4.97); Red Cell Distribution Width 12.6 % (11.5-14.5); Segmented Neutrophils % 74.4 %
[2022-04-21 04:59] LABS: BUN/Creatinine Ratio 14 (6-26); Blood Urea Nitrogen 11 mg/dL (8-23); Calcium 8.2 mg/dL (8.6-10.3); Carbon Dioxide 30 mEq/L (23-29); Chloride 99 mEq/L (98-107); Glucose 124 mg/dL (70-105); Osmolality,Calculated 285 (280-300); Potassium 3.3 mEq/L (3.5-5.1); Sodium 137 mEq/L (136-145); eGFR For African Americans > 60 (> 60); eGFR For Non-African Americans > 60 (> 60)
[2022-04-21] MEDS: Vancomycin 1,500 MG/265 ML IV.SOLN IVPB SCH ×2 (06:43)
[2022-04-21] MEDS: 0.9 % Sodium Chloride 1,000 ML IVC SCH ×2 (07:42→22:15)
[2022-04-21] MEDS: Piperacillin/Tazobactam 3.375 GM in 0.9 % Sodium Chloride Mini Bag 100 ML IVPB SCH ×3 (07:43→23:51)
[2022-04-21] MEDS: QUEtiapine Fumarate 100 MG TABLET PO SCH ×2 (07:43→22:11)
[2022-04-21] MEDS: rOPINIRole 1 MG TABLET PO SCH ×2 (07:43→22:12)
[2022-04-21] MEDS: Pantoprazole 40 MG VIAL IVP SCH (07:43)
[2022-04-21] MEDS: Cyanocobalamin (B-12) 1,000 MCG TABLET PO SCH (07:44)
[2022-04-21] MEDS: Metoprolol XL (24 HR) Succ 50 MG TAB.ER.24H PO SCH (07:44)
[2022-04-21] MEDS: BuPROPion XL (24 HR) 150 MG TABLET PO SCH (07:44)
[2022-04-21] MEDS ORDERED: Ergocalciferol (VIT D2) 50,000 UNIT (1.25MG) CAP PO SCH (09:00)
[2022-04-21] MEDS ORDERED: *HR* Labetalol 20 MG/4 ML SYRINGE IVP PRN (09:55)
[2022-04-21] MEDS ORDERED: polyethylene glycoL 3350 17 GM POWD.PACK PO PRN (14:14)
[2022-04-21] MEDS ORDERED: GI Cocktail 40 ML EACH PO STA (14:14)
[2022-04-21] MEDS: Vancomycin 1,750 MG/517.5 ML IV.SOLN IVPB SCH (15:36)
[2022-04-21] MEDS: traZODone 50 MG TABLET PO SCH (22:11)
[2022-04-21] MEDS: *HR* Labetalol 20 MG/4 ML SYRINGE IVP PRN (22:19)
[2022-04-22] MEDS: Ipratropium/Albuterol Neb 3 ML IH SCH ×7 (00:26→23:00)
[2022-04-22] MEDS: Ondansetron 4 MG/2 ML VIAL IVP PRN ×2 (04:53→10:57)
[2022-04-22] MEDS: *HR* Heparin 5,000 UNIT/ML VIAL SQ SCH ×3 (05:23→20:49)
[2022-04-22] MEDS: Levothyroxine 25 MCG TABLET PO SCH (05:23)
[2022-04-22 06:38] LABS: Basophils # 0.1 K/mcL (0.0-0.2); Basophils % 0.5 %; Eosinophils # 0.1 K/mcL (0.0-0.6); Eosinophils % 1.1 %; Hematocrit 25.5 % (35.3-44.9); Hemoglobin 8.4 g/dL (11.5-15.4); Immature Granulocytes % 6.5 % (0-4); Lymphocytes # 0.9 K/mcL (0.6-4.6); Lymphocytes % 9.3 %; Mean Corpuscular HGB Conc 32.9 g/dL (31.6-35.5); Mean Corpuscular Hemoglobin 27.8 pg (28.0-33.3); Mean Corpuscular Volume 84.4 fL (83.0-100.0); Mean Platelet Volume 9.1 fL (9.4-12.4); Monocytes # 0.5 K/mcL (0.0-1.3); Monocytes % 5.6 %; Neutrophils # 7.1 K/mcL (1.6-8.9); Platelet Count 245 K/mcL (140-400); Red Blood Count 3.02 M/mcL (3.82-4.97); Red Cell Distribution Width 12.4 % (11.5-14.5); White Blood Count 9.2 K/mcL (4.3-11.1)
[2022-04-22 06:55] LABS: BUN/Creatinine Ratio 15 (6-26); Blood Urea Nitrogen 12 mg/dL (8-23); Carbon Dioxide 30 mEq/L (23-29); Chloride 102 mEq/L (98-107); Glucose 116 mg/dL (70-105); Magnesium 1.7 mg/dL (1.6-2.6); Osmolality,Calculated 289 (280-300); Potassium 3.4 mEq/L (3.5-5.1); Sodium 139 mEq/L (136-145); eGFR For African Americans > 60 (> 60); eGFR For Non-African Americans > 60 (> 60)
[2022-04-22] MEDS: BuPROPion XL (24 HR) 150 MG TABLET PO SCH (08:33)
[2022-04-22] MEDS: Metoprolol XL (24 HR) Succ 50 MG TAB.ER.24H PO SCH (08:33)
[2022-04-22] MEDS: Piperacillin/Tazobactam 3.375 GM in 0.9 % Sodium Chloride Mini Bag 100 ML IVPB SCH ×3 (08:34→23:41)
[2022-04-22] MEDS: polyethylene glycoL 3350 17 GM POWD.PACK PO SCH (08:34)
[2022-04-22] MEDS: Cyanocobalamin (B-12) 1,000 MCG TABLET PO SCH (08:34)
[2022-04-22] MEDS: rOPINIRole 1 MG TABLET PO SCH ×2 (08:34→20:49)
[2022-04-22] MEDS: Pantoprazole 40 MG VIAL IVP SCH (08:34)
[2022-04-22] MEDS: QUEtiapine Fumarate 100 MG TABLET PO SCH ×2 (08:34→20:49)
[2022-04-22] MEDS: Acetaminophen 325 MG TABLET PO PRN (10:57)
[2022-04-22] MEDS: 0.9 % Sodium Chloride 1,000 ML IVC SCH (10:57)
[2022-04-22] MEDS: *HR* Labetalol 20 MG/4 ML SYRINGE IVP PRN (10:58)
[2022-04-22] MEDS: Sennosides/Docusate Sodium TABLET PO SCH (14:40)
[2022-04-22] MEDS: Vancomycin 1,750 MG/517.5 ML IV.SOLN IVPB SCH (15:11)
[2022-04-22] MEDS ORDERED: MOM Conc 10 ML UD.LIQ PO ONE (16:53)
[2022-04-22] MEDS ORDERED: Milk and Molasses Enema 200 ML RC ONE (18:53)
[2022-04-22] MEDS: Glycerin RECTAL Suppository RC SCH (19:36)
[2022-04-22] MEDS: traZODone 50 MG TABLET PO SCH (20:49)
[2022-04-23] MEDS: Ipratropium/Albuterol Neb 3 ML IH SCH ×6 (03:21→23:52)
[2022-04-23 03:23] LABS: Eosinophils # 0.3 K/mcL (0.0-0.6); Hematocrit 23.9 % (35.3-44.9); Hemoglobin 7.9 g/dL (11.5-15.4); Mean Corpuscular HGB Conc 33.1 g/dL (31.6-35.5); Mean Corpuscular Hemoglobin 27.4 pg (28.0-33.3); Mean Platelet Volume 9.5 fL (9.4-12.4); Platelet Count 282 K/mcL (140-400); Red Blood Count 2.88 M/mcL (3.82-4.97); Red Cell Distribution Width 12.5 % (11.5-14.5); White Blood Count 10.2 K/mcL (4.3-11.1)
[2022-04-23 03:38] LABS: Calcium 7.6 mg/dL (8.6-10.3); Potassium 3.4 mEq/L (3.5-5.1)
[2022-04-23 04:02] LABS: Lymphocytes # 1.1 K/mcL (0.6-4.6); Monocytes # 0.5 K/mcL (0.0-1.3); Neutrophils # 8.3 K/mcL (1.6-8.9); Platelet Estimate Normal (Normal)
[2022-04-23] MEDS: Levothyroxine 25 MCG TABLET PO SCH (05:48)
[2022-04-23] MEDS: *HR* Heparin 5,000 UNIT/ML VIAL SQ SCH ×3 (05:48→20:42)
[2022-04-23] MEDS: Piperacillin/Tazobactam 3.375 GM in 0.9 % Sodium Chloride Mini Bag 100 ML IVPB SCH (08:27)
[2022-04-23] MEDS: rOPINIRole 1 MG TABLET PO SCH ×2 (08:28→20:42)
[2022-04-23] MEDS: QUEtiapine Fumarate 100 MG TABLET PO SCH ×2 (08:28→20:42)
[2022-04-23] MEDS: BuPROPion XL (24 HR) 150 MG TABLET PO SCH (08:28)
[2022-04-23] MEDS: Cyanocobalamin (B-12) 1,000 MCG TABLET PO SCH (08:29)
[2022-04-23] MEDS: Sennosides/Docusate Sodium TABLET PO SCH ×2 (08:29→20:41)
[2022-04-23] MEDS: Metoprolol XL (24 HR) Succ 50 MG TAB.ER.24H PO SCH (08:29)
[2022-04-23] MEDS: Pantoprazole 40 MG VIAL IVP SCH (08:31)
[2022-04-23] MEDS: Glycerin RECTAL Suppository RC SCH (08:32)
[2022-04-23] MEDS: polyethylene glycoL 3350 17 GM POWD.PACK PO SCH (08:32)
[2022-04-23] MEDS ORDERED: Sennosides/Docusate Sodium TABLET PO ONE (15:57)
[2022-04-23 16:25] LABS: Hematocrit 22.9 % (35.3-44.9); Hemoglobin 7.5 g/dL (11.5-15.4)
[2022-04-23] MEDS ORDERED: Milk and Molasses Enema 200 ML RC ONE (16:29)
[2022-04-23] MEDS: Vancomycin 1,750 MG/517.5 ML IV.SOLN IVPB SCH (16:53)
[2022-04-23] MEDS: Famotidine 20 MG TABLET PO SCH (20:42)
[2022-04-23] MEDS: traZODone 50 MG TABLET PO SCH (20:42)
[2022-04-24 03:29] LABS: Basophils # 0.1 K/mcL (0.0-0.2); Basophils % 0.6 %; Eosinophils # 0.3 K/mcL (0.0-0.6); Hematocrit 22.8 % (35.3-44.9); Hemoglobin 7.3 g/dL (11.5-15.4); Immature Granulocytes % 7.3 % (0-4); Lymphocytes # 1.1 K/mcL (0.6-4.6); Lymphocytes % 13.5 %; Mean Corpuscular Hemoglobin 26.8 pg (28.0-33.3); Mean Corpuscular Volume 83.8 fL (83.0-100.0); Mean Platelet Volume 9.4 fL (9.4-12.4); Monocytes # 0.6 K/mcL (0.0-1.3); Neutrophils # 5.4 K/mcL (1.6-8.9); Platelet Count 243 K/mcL (140-400); Red Blood Count 2.72 M/mcL (3.82-4.97); Segmented Neutrophils % 67.6 %
[2022-04-24] MEDS: Ipratropium/Albuterol Neb 3 ML IH SCH ×6 (04:44→23:11)
[2022-04-24] MEDS: *HR* Heparin 5,000 UNIT/ML VIAL SQ SCH ×3 (05:02→21:09)
[2022-04-24] MEDS: Levothyroxine 25 MCG TABLET PO SCH (05:03)
[2022-04-24] MEDS: BuPROPion XL (24 HR) 150 MG TABLET PO SCH (08:35)
[2022-04-24] MEDS: Metoprolol XL (24 HR) Succ 50 MG TAB.ER.24H PO SCH (08:35)
[2022-04-24] MEDS: QUEtiapine Fumarate 100 MG TABLET PO SCH ×2 (08:35→21:09)
[2022-04-24] MEDS: rOPINIRole 1 MG TABLET PO SCH ×2 (08:35→21:09)
[2022-04-24] MEDS: Sennosides/Docusate Sodium TABLET PO SCH ×2 (08:35→21:09)
[2022-04-24] MEDS: polyethylene glycoL 3350 17 GM POWD.PACK PO SCH (08:36)
[2022-04-24] MEDS: Cyanocobalamin (B-12) 1,000 MCG TABLET PO SCH (08:36)
[2022-04-24] MEDS: Famotidine 20 MG TABLET PO SCH ×2 (08:36→21:09)
[2022-04-24 09:35] LABS: Hematocrit 24.2 % (35.3-44.9)
[2022-04-24 09:49] LABS: Calcium 7.7 mg/dL (8.6-10.3); Potassium 3.2 mEq/L (3.5-5.1)
[2022-04-24] MEDS ORDERED: 0.9 % Sodium Chloride 250 ML ONE (15:47)
[2022-04-24] MEDS: traZODone 50 MG TABLET PO SCH (21:09)
[2022-04-24 22:09] LABS: Hematocrit 27.5 % (35.3-44.9); Mean Corpuscular HGB Conc 32.7 g/dL (31.6-35.5); Mean Corpuscular Hemoglobin 27.4 pg (28.0-33.3); Mean Corpuscular Volume 83.6 fL (83.0-100.0); Mean Platelet Volume 9.5 fL (9.4-12.4); Platelet Count 231 K/mcL (140-400); Red Blood Count 3.29 M/mcL (3.82-4.97); Red Cell Distribution Width 12.9 % (11.5-14.5); White Blood Count 8.2 K/mcL (4.3-11.1)
[2022-04-25] MEDS: Ipratropium/Albuterol Neb 3 ML IH SCH ×3 (04:19→10:52)
[2022-04-25] MEDS: *HR* Heparin 5,000 UNIT/ML VIAL SQ SCH (05:43)
[2022-04-25] MEDS: Levothyroxine 25 MCG TABLET PO SCH (05:43)
[2022-04-25] MEDS: Cyanocobalamin (B-12) 1,000 MCG TABLET PO SCH (09:14)
[2022-04-25] MEDS: Sennosides/Docusate Sodium TABLET PO SCH (09:15)
[2022-04-25] MEDS: QUEtiapine Fumarate 100 MG TABLET PO SCH (09:15)
[2022-04-25] MEDS: Famotidine 20 MG TABLET PO SCH (09:15)
[2022-04-25] MEDS: Metoprolol XL (24 HR) Succ 50 MG TAB.ER.24H PO SCH (09:15)
[2022-04-25] MEDS: polyethylene glycoL 3350 17 GM POWD.PACK PO SCH (09:16)
[2022-04-25] MEDS: BuPROPion XL (24 HR) 150 MG TABLET PO SCH (09:16)
[2022-04-25] MEDS: rOPINIRole 1 MG TABLET PO SCH (09:17)
[2022-04-25 09:35] LABS: Hematocrit 28.2 % (35.3-44.9); Hemoglobin 9.1 g/dL (11.5-15.4); Mean Corpuscular HGB Conc 32.3 g/dL (31.6-35.5); Mean Corpuscular Hemoglobin 26.9 pg (28.0-33.3); Mean Corpuscular Volume 83.4 fL (83.0-100.0); Mean Platelet Volume 9.3 fL (9.4-12.4); Platelet Count 219 K/mcL (140-400); Red Blood Count 3.38 M/mcL (3.82-4.97); Red Cell Distribution Width 12.7 % (11.5-14.5); White Blood Count 8.4 K/mcL (4.3-11.1)
[2022-04-25 09:59] LABS: Calcium 8.2 mg/dL (8.6-10.3); Magnesium 1.7 mg/dL (1.6-2.6); Phosphorous 3.6 mg/dL (2.7-4.5); Potassium 3.3 mEq/L (3.5-5.1)
[2022-04-25 11:52] LABS: Influenza A PCR Negative (Negative); Influenza B PCR Negative (Negative); Resp. Syncytial Virus PCR Negative (Negative)
[2022-04-25 12:07] VITALS: BP 181/83; PULSE 91; TEMP 98.5; O2SAT 97
[2022-04-25 12:10] LABS: SARS-CoV-2 by PCR (In House) Negative (Negative)
== END 2022-04-25 14:47 | DRG 853 ==
LOC: 2NENU 18:49 → EMEROOARM 18:49 → SUATTDRO 04-14 03:33 → 2NENU 04-14 04:30 → SUATTDRO 04-14 16:07
PROVIDERS: ADMIT Student in an Organized Health Care Education/Training Program; ATTEND Internal Medicine

== ENCOUNTER 2022-06-02 09:34 | Inpatient (IN) ==
[2022-06-02 10:21] LABS: Basophils % 0.2 %; Eosinophils # 0.2 K/mcL (0.0-0.6); Eosinophils % 1.5 %; Hematocrit 31.8 % (35.3-44.9); Hemoglobin 10.3 g/dL (11.5-15.4); Immature Granulocytes % 0.6 % (0-4); Lymphocytes # 1.5 K/mcL (0.6-4.6); Lymphocytes % 13.4 %; Mean Corpuscular HGB Conc 32.4 g/dL (31.6-35.5); Mean Corpuscular Hemoglobin 26.8 pg (28.0-33.3); Mean Corpuscular Volume 82.6 fL (83.0-100.0); Mean Platelet Volume 10.3 fL (9.4-12.4); Monocytes # 0.3 K/mcL (0.0-1.3); Neutrophils # 9.4 K/mcL (1.6-8.9); Platelet Count 178 K/mcL (140-400); Red Blood Count 3.85 M/mcL (3.82-4.97); Red Cell Distribution Width 14.8 % (11.5-14.5); Segmented Neutrophils % 81.3 %; White Blood Count 11.5 K/mcL (4.3-11.1)
[2022-06-02 10:48] LABS: BUN/Creatinine Ratio 14 (6-26); Blood Urea Nitrogen 21 mg/dL (8-23); Carbon Dioxide 23 mEq/L (23-29); Chloride 108 mEq/L (98-107); Glucose 119 mg/dL (70-105); Magnesium 1.4 mg/dL (1.6-2.6); Osmolality,Calculated 292 (280-300); Potassium 3.8 mEq/L (3.5-5.1); Sodium 139 mEq/L (136-145); Troponin I < 0.03 ng/mL (< 0.04)
[2022-06-02 10:55] LABS: Bacteria,Urine Moderate per hpf (None-Few); Bilirubin,Urine Negative (Negative); Blood,Urine Small (Negative); Clarity,Urine Ex.Turbid (Clear); Color,Urine Yellow (Yellow); Glucose,Urine (UA) Normal (Normal); Ketones,Urine Negative (Negative); Leukocyte Esterase,Urine Large (Negative); Mucus,Urine Few per lpf (None-Few); Nitrite,Urine Positive (Negative); PH,Urine 6.5 pH Units (5.0-8.0); Protein,Urine Trace mg/dL (Neg-Trace); Specific Gravity,Urine 1.012 (1.010-1.025); Squamous Epithelial Cell,Urine Few per hpf (None-Few); Urobilinogen,Urine Normal (Normal); WBC,Urine TNTC per hpf (0-3)
[2022-06-02] MEDS: Ertapenem 1,000 MG in 0.9 % Sodium Chloride Mini Bag 100 ML IVPB SCH (10:59)
[2022-06-02] MEDS ORDERED: Naloxone 0.4 MG/ML INJ IVP PRN (12:25)
[2022-06-02] MEDS: Metoprolol XL (24 HR) Succ 50 MG TAB.ER.24H PO SCH (14:45)
[2022-06-02] MEDS: Gabapentin 400 MG CAPSULE PO SCH ×2 (14:45→20:07)
[2022-06-02] MEDS: 0.9 % Sodium Chloride 1,000 ML IVC SCH (14:45)
[2022-06-02] MEDS: Apixaban 5 MG TABLET PO SCH (20:07)
[2022-06-02] MEDS: traZODone 50 MG TABLET PO PRN (20:07)
[2022-06-02] MEDS: QUEtiapine Fumarate 100 MG TABLET PO SCH (20:07)
[2022-06-03] MEDS: 0.9 % Sodium Chloride 1,000 ML IVC SCH ×3 (02:52→15:41)
[2022-06-03] MEDS: Levothyroxine 25 MCG TABLET PO SCH (05:14)
[2022-06-03 05:56] LABS: Basophils % 0.1 %; Eosinophils # 0.2 K/mcL (0.0-0.6); Hematocrit 27.6 % (35.3-44.9); Hemoglobin 9.2 g/dL (11.5-15.4); Immature Granulocytes % 0.8 % (0-4); Lymphocytes # 1.9 K/mcL (0.6-4.6); Lymphocytes % 25.8 %; Mean Corpuscular HGB Conc 33.3 g/dL (31.6-35.5); Mean Corpuscular Hemoglobin 27.3 pg (28.0-33.3); Mean Corpuscular Volume 81.9 fL (83.0-100.0); Mean Platelet Volume 10.1 fL (9.4-12.4); Monocytes # 0.4 K/mcL (0.0-1.3); Monocytes % 4.9 %; Neutrophils # 4.8 K/mcL (1.6-8.9); Platelet Count 148 K/mcL (140-400); Red Blood Count 3.37 M/mcL (3.82-4.97); Segmented Neutrophils % 65.4 %; White Blood Count 7.3 K/mcL (4.3-11.1)
[2022-06-03 06:49] LABS: Calcium 8.3 mg/dL (8.6-10.3); Magnesium 2.4 mg/dL (1.6-2.6); Potassium 3.7 mEq/L (3.5-5.1)
[2022-06-03] MEDS: Ertapenem 1,000 MG in 0.9 % Sodium Chloride Mini Bag 100 ML IVPB SCH (08:38)
[2022-06-03] MEDS: BuPROPion XL (24 HR) 150 MG TABLET PO SCH (08:39)
[2022-06-03] MEDS: Metoprolol XL (24 HR) Succ 50 MG TAB.ER.24H PO SCH (08:39)
[2022-06-03] MEDS: Gabapentin 400 MG CAPSULE PO SCH ×3 (08:39→22:39)
[2022-06-03] MEDS: Apixaban 5 MG TABLET PO SCH ×2 (08:40→22:38)
[2022-06-03] MEDS: rOPINIRole 1 MG TABLET PO SCH ×2 (08:40→22:38)
[2022-06-03] MEDS: QUEtiapine Fumarate 100 MG TABLET PO SCH ×2 (08:40→22:39)
[2022-06-03] MEDS: Mirabegron [Myrbetriq] 25 MG Tab.Er.24h PO SCH (08:41)
[2022-06-03] MEDS: Solifenacin Succinate [Vesicare] 10 MG Tablet PO SCH (08:41)
[2022-06-03] MEDS: traZODone 50 MG TABLET PO PRN (22:38)
[2022-06-04] MEDS: 0.9 % Sodium Chloride 1,000 ML IVC SCH (05:26)
[2022-06-04] MEDS: Levothyroxine 25 MCG TABLET PO SCH (05:38)
[2022-06-04 05:58] LABS: Basophils % 0.2 %; Eosinophils # 0.2 K/mcL (0.0-0.6); Eosinophils % 3.9 %; Hematocrit 25.9 % (35.3-44.9); Hemoglobin 8.6 g/dL (11.5-15.4); Immature Granulocytes % 1.2 % (0-4); Lymphocytes # 1.7 K/mcL (0.6-4.6); Lymphocytes % 32.8 %; Mean Corpuscular HGB Conc 33.2 g/dL (31.6-35.5); Mean Corpuscular Hemoglobin 27.3 pg (28.0-33.3); Mean Corpuscular Volume 82.2 fL (83.0-100.0); Mean Platelet Volume 9.7 fL (9.4-12.4); Monocytes # 0.3 K/mcL (0.0-1.3); Monocytes % 6.1 %; Neutrophils # 2.9 K/mcL (1.6-8.9); Platelet Count 138 K/mcL (140-400); Red Blood Count 3.15 M/mcL (3.82-4.97); Red Cell Distribution Width 14.9 % (11.5-14.5); Segmented Neutrophils % 55.8 %; White Blood Count 5.1 K/mcL (4.3-11.1)
[2022-06-04 06:25] LABS: Calcium 8.1 mg/dL (8.6-10.3); Magnesium 1.9 mg/dL (1.6-2.6); Phosphorous 3.7 mg/dL (2.7-4.5); Potassium 3.5 mEq/L (3.5-5.1)
[2022-06-04 07:20] VITALS: BP 148/82; PULSE 84; TEMP 98; O2SAT 95
[2022-06-04] MEDS: BuPROPion XL (24 HR) 150 MG TABLET PO SCH (08:22)
[2022-06-04] MEDS: Apixaban 5 MG TABLET PO SCH (08:22)
[2022-06-04] MEDS: rOPINIRole 1 MG TABLET PO SCH (08:23)
[2022-06-04] MEDS: Gabapentin 400 MG CAPSULE PO SCH (08:23)
[2022-06-04] MEDS: QUEtiapine Fumarate 100 MG TABLET PO SCH (08:25)
[2022-06-04] MEDS: Metoprolol XL (24 HR) Succ 50 MG TAB.ER.24H PO SCH (08:25)
[2022-06-04] MEDS: Ertapenem 1,000 MG in 0.9 % Sodium Chloride Mini Bag 100 ML IVPB SCH (08:38)
[2022-06-04] MEDS: Mirabegron [Myrbetriq] 25 MG Tab.Er.24h PO SCH (08:51)
[2022-06-04] MEDS: Solifenacin Succinate [Vesicare] 10 MG Tablet PO SCH (08:51)
[2022-06-04 09:43] LABS: Influenza A PCR Negative (Negative); Influenza B PCR Negative (Negative); Resp. Syncytial Virus PCR Negative (Negative)
[2022-06-04 10:03] LABS: SARS-CoV-2 by PCR (In House) Negative (Negative)
== END 2022-06-04 12:37 | DRG 689 ==
LOC: EMEROOARM 09:34 → 3BNU 09:34 → SUATTDRO 11:52 → 3BNU 13:00
PROVIDERS: ADMIT Internal Medicine; ATTEND Internal Medicine